=== PATIENT | male | born 1955 | race Caucasian/White ===

== ENCOUNTER 2023-07-28 12:48 | Inpatient (IN) | payer MEDICARE, SELFPAY ==
[2023-07-28] VITALS (8 sets, daily range): BP systolic 125–134; BP diastolic 79–96; PULSE 96–103; RESP 14–20; TEMP 36.2–36.8; O2SAT 9–99; BMI 36.1; BMI 35.5
--- NOTE | 2023-07-28 14:10 | RAD_ITS ---
STUDY: X-RAY CHEST REASON FOR EXAM: Male, 68 years old. Chest pain TECHNIQUE: Single AP portable view of the chest. COMPARISON: None. FINDINGS: EKG electrodes are seen. Small right pleural effusion with right basilar infiltration and/or atelectasis. There is no demonstrated pleural abnormality. Normal size heart. Normal mediastinum and zaynab. Normal visualized pulmonary arteries. Normal visualized aortic arch and descending thoracic aorta. There are diffuse degenerative changes of the visualized thoracic spine. Normal visualized ribs, clavicles, and shoulders. There is no demonstrated abnormality of the visualized soft tissue structures of the upper abdomen. RAD/Chest 1 View (Portable) IMPRESSION: Small right pleural effusion with right basilar infiltration and/or atelectasis. Electronically Signed: Levi Hathaway MD at 14:39 EST ,
--- NOTE | 2023-07-28 14:10 | EKG12_ITS ---
Test Reason : SOB Blood Pressure : / mmHG Vent. Rate : 096 BPM Atrial Rate : 096 BPM P-R Int : 232 ms QRS Dur : 086 ms QT Int : 392 ms P-R-T Axes : 075 260 028 degrees QTc Int : 495 ms Sinus rhythm with 1st degree A-V block Right superior axis deviation Low voltage QRS Inferior infarct , age undetermined Cannot rule out Anteroseptal infarct , age undetermined Abnormal ECG Confirmed by TRESSA TORRES, KARL ([id number]), news video editor LETY JOSE ([id number]) on 07/29/2023 9:08:54 AM Referred By: Confirmed By:KARL BUSTILLOS MD
--- NOTE | 2023-07-28 14:12 | EDS_ITS ---
HPI <Trinidad Bennett RN - Last Filed: 07/28/23 15:40> History of Present Illness Chief Complaint: Shortness of Breath Informant: patient Onset/Context/Timing Onset: - (Summer 2022) Context: Gradual Onset Timing: Waxes and wanes Current Severity: Mild Maximum Severity: Moderate Worsened by: Activity Relieved by: Rest Associated Symptoms Associated Symptoms: Bilateral lower extremity edema Narrative Narrative: Patient presents to the ED after referral from urgent care for bilateral lower extremity edema x 1 month. Patient also reports shortness of breath and productive cough with yellow sputum since having pneumonia last summer worsening with exertion. Patient denies orthopnea. Reports intermittent mid right sharp chest pain associated with coughing. Patient reports following with pulmonology last being seen this past month. Scheduled for a pulmonary stress test and x- ray on 08/07/2023. Reports being a 40-year pack per day smoker who quit 10 years ago. Patient reports possible history of COPD with no confirmed diagnosis that he is aware of. Patient uses Spiriva daily and albuterol inhaler 2-3 times per week. Patient also takes certrazine and Flonase for allergy symptoms patient denies dizziness. Denies nausea, vomiting, or diarrhea. Denies prior blood clots. Reports recently traveled to [place] at the beginning of June. Denies family history of heart disease. Reports father at a young age due to stomach cancer. Prior similar symptoms: Yes Recent Illness/Hospitalization: No PFSH <Trinidad Bennett RN - Last Filed: 07/28/23 15:40> PFSH Home Medications albuterol sulfate 90 mcg/actuation aerosol inhaler 2 inh inhalation Q4H PRN shortness of breath or wheezing 07/28/23 [History Last Taken Unknown] cetirizine 10 mg tablet (Zyrtec) 10 mg PO DAILY allergies 07/28/23 [History Last Taken Unknown] fluticasone propionate 50 mcg/actuation nasal spray,suspension (24 Hour Allergy Relief) 1 spray intranasal DAILY allergies 07/28/23 [History Last Taken Unknown] tiotropium bromide 18 mcg capsule with inhalation device 1 cap inhalation DAILY SOB and wheezing 07/28/23 [History Last Taken Unknown] Allergy/AdvReac Type Severity Reaction Status Date / Time diphenhydramine Allergy Hives Verified 07/28/23 12:49 [From Benadryl] Social History Smoking Status: Never smoker ROS <Trinidad Bennett RN - Last Filed: 07/28/23 15:40> ROS ED Constitutional Constitutional ED: Denies chills, fever(s) or sweats Eyes Eyes: Denies change in vision ENT ENT ED: Denies ear pain, rhinorrhea or sore throat Cardiovascular Cardiovascular: Reports chest pain; Denies orthopnea, palpitations or racing heartbeat Respiratory/Chest Respiratory/Chest: Reports cough, dyspnea, dyspnea on exertion and sputum; Denies orthopnea Gastrointestinal Gastrointestinal: Denies abdominal pain, diarrhea, nausea or vomiting Genitourinary Genitourinary ED: Denies dysuria, hematuria or urinary frequency Musculoskeletal Musculoskeletal: Denies arthralgias or myalgias Neurologic Neurologic: Denies headache(s), paresthesias or weakness EXAM <Trinidad Bennett RN - Last Filed: 07/28/23 15:40> Physical Exam Const Vital Signs: 07/28/23 12:49 07/28/23 13:30 07/28/23 15:02 Temperature 98.2 F Temperature Source Temporal Pulse Rate 103 H Respiratory Rate 20 H Respiratory Effort Normal Respiratory Depth Normal Respiratory Pattern Normal Blood Pressure 134/90 H Blood Pressure Mean 104 Pulse Ox 95 Oxygen Delivery Method Room Air Room Air 07/28/23 15:19 07/28/23 15:20 07/28/23 15:22 Temperature 98.1 F Temperature Source Pulse Rate 97 97 Respiratory Rate 17 17 Respiratory Effort Short of Breath Respiratory Depth Respiratory Pattern Normal Blood Pressure 131/93 H 131/93 H Blood Pressure Mean 105 105 Pulse Ox 94 94 Oxygen Delivery Method Room Air Positive well nourished and well developed General Appearance ED: well developed and NAD HEENT Reports moist mucous membranes Eyes PERRL and EOMs intact bilaterally Neck no lymphadenopathy Chest Wall inspection of chest normal and palpation of chest normal Resp normal respiratory effort and clear to auscultation bilaterally Resp Narrative: Patient able to speak in complete sentences. Auscultation: Negative for rales, rhonchi or wheezes Cardio regular rate, regular rhythm, S1 normal heart sound and S2 normal heart sound GI normal to inspection, nondistended, normoactive bowel sounds and non-tender Palpation: soft Extremity Extremity Narrative: 3+ pitting edema and redness from feet to knees. General Extremety ED: Yes edema General Extremity: edema Neuro oriented x3 Sensorium / Orientation: alert Motor Exam: strength 5/5 throughout Psych mental status grossly normal Skin no rashes or lesions noted <Dr. Adam Marx MD - Last Filed: 07/28/23 15:41> Physical Exam Const Vital Signs: 07/28/23 12:49 07/28/23 13:30 07/28/23 15:02 Temperature 98.2 F Temperature Source Temporal Pulse Rate 103 H Respiratory Rate 20 H Respiratory Effort Normal Respiratory Depth Normal Respiratory Pattern Normal Blood Pressure 134/90 H Blood Pressure Mean 104 Pulse Ox 95 Oxygen Delivery Method Room Air Room Air 07/28/23 15:19 07/28/23 15:20 07/28/23 15:22 Temperature 98.1 F Temperature Source Pulse Rate 97 97 Respiratory Rate 17 17 Respiratory Effort Short of Breath Respiratory Depth Respiratory Pattern Normal Blood Pressure 131/93 H 131/93 H Blood Pressure Mean 105 105 Pulse Ox 94 94 Oxygen Delivery Method Room Air MDM <Trinidad Bennett RN - Last Filed: 07/28/23 15:40> MDM MDM Narrative Medical decision making narrative: Patient placed on vehicle monitor technician. IV line initiated. Labwork obtained to evaluate for leukocytosis, anemia, and electrolyte derangement. EKG obtained to evaluate for cardiac arrhythmia/ischemia. History & Record Review Discussion w/independent historian: Patient Lab Data Labs: Laboratory Results - last 24 hr 07/28/23 13:25 WBC 4.1 L RBC 5.05 Hgb 14.3 Hct 45.1 MCV 89.3 MCH 28.3 MCHC 31.7 L RDW Std Deviation 51.6 H RDW Coeff of Ofelia 15.9 H Plt Count 142 L MPV 11.0 Immature Gran % (Auto) 0.700 Neut % (Auto) 43.3 L Lymph % (Auto) 35.8 [place] % (Auto) 17.2 H Eos % (Auto) 1.5 Baso % (Auto) 1.5 H Absolute Neuts (auto) 1.8 L Absolute Lymphs (auto) 1.48 Nucleated RBC % 0 Sodium 138 Potassium 4.1 Chloride 106 Carbon Dioxide 24.0 Anion Gap 8 BUN 13 Creatinine 1.08 Estim Creat Clear Calc 96.86 Est GFR (MDRD) Af Amer 88 Est GFR (MDRD) Non-Af 72 BUN/Creatinine Ratio 12.0 Glucose 124 H Calcium 8.9 Troponin I High Sens 42 B-Natriuretic Peptide 720.5 H Radiography Diagnostic Testing: Clinical Impression(s) from Imaging Studies Chest X-Ray 07/28/23 14:10 IMPRESSION: Small right pleural effusion with right basilar infiltration and/or atelectasis. Electronically Signed: Levi Hathaway MD at 14:39 EST , Differential Diagnosis Chest pain/SOB: pneumonia, CHF and COPD Management Discussion w/another healthcare provider: Other (Dr. Marx, ED provider) Treatment and Re-Evaluation :: CBC shows white count of 4.1 with neutrophils 43.3 and hemoglobin 14.3. Chemistry is normal with the exception of glucose 124 and a BNP of 720.5. High- sensitivity troponin negative at 42. Chest x-ray shows right pleural effusion. Lab work and imaging suggestive of congestive heart failure. Lab results, imaging, and diagnosis of CHF discussed with patient. Patient verbalizes adequate understanding. Patient to be admitted. <Dr. Adam Marx MD - Last Filed: 07/28/23 15:41> MDM MDM Narrative Medical decision making narrative: Patient placed on vehicle monitor technician. IV line initiated. Labwork obtained to evaluate for leukocytosis, anemia, and electrolyte derangement. EKG obtained to evaluate for cardiac arrhythmia/ischemia. I have personally performed a face to face assessment of the patient and have reviewed the NALDO Note. I performed a substantive portion of the visit including all aspects of the following. My medeiros findings include: 68-year-old male over the last several months has had developed exertional dyspnea. Over the last month he has developed increased swelling and water retention in both lower extremities from the knees down. He has no history of cardiac disease. No history of cardiac surgery. He has not been having chest pain. Exam is [well-appearing 8-year-old male. Vital signs stable afebrile. Pulse ox 95% on room air no hypoxia. H EENT exam unremarkable. Neck nontender no JVD. Lungs diminished in the right base. Heart regular rhythm rate about 95 no murmur. Chest wall nontender. Abdomen soft nontender. Moving all 4 ex tremities. He has 1+ pitting edema from his distal thighs down to his feet. Calves are nontender. No cords. They are equal and symmetrical. Dorsi and plantarflexion intact. Neurologically is awake and alert with no focal motor deficits. Answering questions following commands.] Medical Decision Making [68-year-old male with exertional dyspnea and lower extremity swelling. No cardiac history. History and exam are consistent with CHF. Patient's had worsening symptoms. He is having exertional dyspnea. I think he needs an echocardiogram and further evaluation I will speak to the hospitalist about admission.] Other additions or changes: [None] Lab Data Attestation: I reviewed the patient's lab results. Lab results narrative: CBC shows a white count of 4. H&H 14 and 45. Platelets 142. Electrolytes show a gap of 8. Normal BUN of 13 creatinine of 1. Glucose 124. Troponin normal at 42. BNP elevated at 720. Chest x-ray shows borderline cardiomegaly and a right pleural effusion. EKG sinus rhythm rate of 96 first-degree AV block. Labs: Laboratory Results - last 24 hr 07/28/23 13:25 WBC 4.1 L RBC 5.05 Hgb 14.3 Hct 45.1 MCV 89.3 MCH 28.3 MCHC 31.7 L RDW Std Deviation 51.6 H RDW Coeff of [place]elia 15.9 H Plt Count 142 L MPV 11.0 Immature Gran % (Auto) 0.700 Neut % (Auto) 43.3 L Lymph % (Auto) 35.8 [place] % (Auto) 17.2 H Eos % (Auto) 1.5 Baso % (Auto) 1.5 H Absolute Neuts (auto) 1.8 L Absolute Lymphs (auto) 1.48 Nucleated RBC % 0 Sodium 138 Potassium 4.1 Chloride 106 Carbon Dioxide 24.0 Anion Gap 8 BUN 13 Creatinine 1.08 Estim Creat Clear Calc 96.86 Est GFR (MDRD) Af Amer 88 Est GFR (MDRD) Non-Af 72 BUN/Creatinine Ratio 12.0 Glucose 124 H Calcium 8.9 Troponin I High Sens 42 B-Natriuretic Peptide 720.5 H Radiography Chest X-Ray - ED: 1 View, Read by ED Physician, Read by Radiologist, Cardiomegaly and Right Effusion Diagnostic Testing: Clinical Impression(s) from Imaging Studies Chest X-Ray 07/28/23 14:10 IMPRESSION: Small right pleural effusion with right basilar infiltration and/or atelectasis. Electronically Signed: Levi Hathaway MD at 14:39 EST , Chest x-ray, portable, single view shows right pleural effusion. Cannot rule out atelectasis. Borderline cardiomegaly. Interpreted both by myself and radiologist. Rhythm Strip Rhythm Strip: Sinus Rhythm Rate: 96 Ectopy: None EKG Initial EKG: Attestation: I personally reviewed and interpreted this EKG as follows: Interpretation: Sinus Rhythm and No Acute Injury Pattern Comments: Sinus rhythm rate 96 first-degree AV block. PA interval 232. No signs of NM or ischemia. Discharge Plan Triage Chief Complaint: Shortness of Breath ED Provider: Adam Marx Dx/Rx/DC Orders Clinical Impression: Heart failure, Acute dyspnea, New onset of congestive heart failure, Pleural effusion on right Prescriptions: No Action cetirizine [Zyrtec] 10 mg tablet 10 mg PO DAILY tiotropium bromide 18 mcg capsule, w/inhalation device 1 cap INHALATION DAILY Patient Comments: inhale THE CONTENTS OF ONE CAPSULE IN THE HANDIHALER once daily fluticasone propionate [24 Hour Allergy Relief] 50 mcg/actuation spray,suspension 1 spray intranasal DAILY Rx Instructions: administer into each nostril albuterol sulfate 90 mcg/actuation HFA aerosol inhaler 2 inh inhalation Q4H PRN (Reason: shortness of breath or wheezing) Primary Care Provider: Care Physician,No Primary Referrals: Care Physician,No Primary [Primary Care Provider] - Disposition Disposition: [facility]
[2023-07-28 14:23] LABS: Absolute Lymphocyte Count 1.48 X10^3/uL (0.83-4.51); Absolute Neutrophil Count 1.8 X10^3/uL (2.0-7.7); Basophil# 0.06 X10^3/uL; Basophil% 1.5 % (0-1); Eosinophil# 0.06 X10^3/uL; Eosinophils% 1.5 % (0-5); Hematocrit 45.1 % (40-54); Hemoglobin 14.3 g/dL (13.0-16.5); Lymphocyte # 1.48 X10^3/ul (0.83-4.51); Lymphocyte % 35.8 % (19-41); Mean Corp Hgb Conc 31.7 g/dL (32-36); Mean Corpuscular Hgb 28.3 pg (27.0-32.0); Mean Corpuscular Volume 89.3 fL (80-94); Monocyte# 0.71 X10^3/uL; Monocyte% 17.2 % (0-10); NRBC Flagged by Analyzer 0 % (0-5); Neutrophil # 1.79 X10^3/uL (2.7-7.7); Neutrophil % 43.3 % (47-70); Platelet Count 142 K/mm3 (150-450); RBC Distribution Width CV 15.9 % (11.6-14.6); RBC Distribution Width SD 51.6 fl (35.1-43.9); Red Blood Count 5.05 M/mm3 (4.6-6.2); White Blood Count 4.1 K/mm3 (4.4-11.0)
[2023-07-28 14:42] LABS: BNP,B-Type NATRIURETIC PEPTIDE 720.5 pg/mL (0-100)
[2023-07-28 14:43] LABS: Anion Gap 8 (5-15); BUN 13 mg/dL (7-18); Calcium,Total 8.9 mg/dL (8.5-10.1); Chloride 106 mmol/L (98-107); Creatinine, Serum 1.08 mg/dL (0.70-1.30); EST Glomerular Filtration Rate 72 mL/min (>60); Est Glom Filt Rate - Afr Amer 88 mL/min (>60); Estimated Creatinine Clearance 96.86 ml/min; Glucose 124 mg/dL (74-106); Potassium 4.1 mmol/L (3.5-5.1); Sodium Level 138 mmol/L (136-145); Troponin-I HS 42 pg/mL (3.0-78.0)
[2023-07-28] MEDS: Furosemide 40 MG/4 ML Vial IV (15:45)
--- NOTE | 2023-07-28 16:12 | HP.PCM.HOS_ITS ---
HPI - General General Date of Admission: 07/28/23 Date of Service: 07/28/23 Chief Complaint: SOB on exertion and leg swelling HPI Narrative WILMA ABARCA, is a 68-year-old male with history of possible COPD and seasonal allergies presented to [facility] ED 07/28/2023 for shortness of breath worsening w/ exertion and he additionally has bilateral lower extremity edema but denies orthopnea. Recently established with [facility] pulmonology and is scheduled for a pulmonary stress test and x-ray 08/07/2023. In the ED he was found to have significant pitting edema over his knees and a BNP over 700 with a small right-sided pleural effusion and hospitalist contacted for admission. Patient seen at bedside and reports that he has had increasing shortness of breath for months, has been treated for pneumonia several times and will get slightly better but has not completely improved and is at the point where he cannot even walk up stairs due to his shortness of breath, reports he is gaining weight and fluid and over the past 2 days has had significant worsening of edema in lower extremities to over his knees. Does have some chronic sinus drainage so has slightly productive cough and intermittent tickle in his throat that appears to be chronic. Did see a senior ruby developer to establish care a couple weeks ago and it suspected he may have COPD and was put on Spiriva which helped some but continues to have problems. ROS otherwise negative. PFSH Home Medications albuterol sulfate 90 mcg/actuation aerosol inhaler 2 inh inhalation Q4H PRN shortness of breath or wheezing 07/28/23 [History Last Taken Unknown] cetirizine 10 mg tablet (Zyrtec) 10 mg PO DAILY allergies 07/28/23 [History Last Taken Unknown] fluticasone propionate 50 mcg/actuation nasal spray,suspension (24 Hour Allergy Relief) 1 spray intranasal DAILY allergies 07/28/23 [History Last Taken Unknown] tiotropium bromide 18 mcg capsule with inhalation device 1 cap inhalation DAILY SOB and wheezing 07/28/23 [History Last Taken Unknown] Allergy/AdvReac Type Severity Reaction Status Date / Time diphenhydramine Allergy Hives Verified 07/28/23 12:49 [From Benadryl] Social History Smoking Status: Never smoker ROS ROS Narrative General: Denies fever/chills HENT: Denies headache, denies stuffy nose, denies sore throat EYES: Denies changes in vision Resp: Does have cough occasionally productive, increasing shortness of breath Cardiac: Denies chest pain GI: Denies abdominal pain, does feel he has some increasing abdominal distention, denies changes in bowel, denies nausea/vomiting : Denies changes in urination Extremity: Increasing swelling in lower extremities MSK: Denies weakness Neuro: Denies any numbness/tingling Heme: Denies any bleeding or bruising Skin: Denies rashes Psychiatric: No complaints voiced Vital Signs Vital Signs Vital Signs: 07/28/23 12:49 07/28/23 13:30 07/28/23 15:02 Temperature 98.2 F Temperature Source Temporal Pulse Rate 103 H Respiratory Rate 20 H Respiratory Effort Normal Respiratory Depth Normal Respiratory Pattern Normal Blood Pressure 134/90 H Blood Pressure Mean 104 Pulse Ox 95 Oxygen Delivery Method Room Air Room Air 07/28/23 15:19 07/28/23 15:20 07/28/23 15:22 Temperature 98.1 F Temperature Source Pulse Rate 97 97 Respiratory Rate 17 17 Respiratory Effort Short of Breath Respiratory Depth Respiratory Pattern Normal Blood Pressure 131/93 H 131/93 H Blood Pressure Mean 105 105 Pulse Ox 94 94 Oxygen Delivery Method Room Air 07/28/23 15:45 Temperature Temperature Source Pulse Rate 96 Respiratory Rate 14 Respiratory Effort Respiratory Depth Respiratory Pattern Blood Pressure 130/96 H Blood Pressure Mean 107 Pulse Ox 99 Oxygen Delivery Method Room Air Weight Weight: 131.2 kg Body Mass Index (BMI) 36.1 Physical Exam Narrative General: Alert, oriented, no apparent distress HEENT: Atraumatic, normocephalic Eyes: Anicteric, normal conjunctiva, extraocular movements grossly intact Neck: Supple Respiratory: Somewhat diminished at the bases, normal respiratory effort Cardiovascular: Regular rate and rhythm GI: Soft, nontender, nondistended Extremities: Pitting edema up to her knees Musculoskeletal: Moving all extremities Neuro: No overt focal neurological deficits Skin: No rashes appreciated Psych: Cooperative Results Lab / Micro Data 07/28/23 13:25 07/28/23 13:25 Labs: Laboratory Results - last 24 hr 07/28/23 13:25: WBC 4.1 L, RBC 5.05, Hgb 14.3, Hct 45.1, MCV 89.3, MCH 28.3, MCHC 31.7 L, RDW Std Deviation 51.6 H, RDW Coeff of [place] 15.9 H, Plt Count 142 L, MPV 11.0, Immature Gran % (Auto) 0.700, Neut % (Auto) 43.3 L, Lymph % (Auto) 35.8, [place] % (Auto) 17.2 H, Eos % (Auto) 1.5, Baso % (Auto) 1.5 H, Absolute Neuts (auto) 1.8 L, Absolute Lymphs (auto) 1.48, Nucleated RBC % 0, Sodium 138, Potassium 4.1, Chloride 106, Carbon Dioxide 24.0, Anion Gap 8, BUN 13, Creatinine 1.08, Estim Creat Clear Calc 96.86, Est GFR (MDRD) Af Amer 88, Est GFR (MDRD) Non-Af 72, BUN/Creatinine Ratio 12.0, Glucose 124 H, Calcium 8.9, Troponin I High Sens 42, B-Natriuretic Peptide 720.5 H Rhythm Strip Rhythm Strip: Sinus Rhythm Rate: 96 Ectopy: None Imaging Radiology Impression Chest X-Ray 07/28/23 14:10 IMPRESSION: Small right pleural effusion with right basilar infiltration and/or atelectasis. Electronically Signed: Levi Hathaway MD at 14:39 EST , Assessment & Plan Assessment/Plan (1) Acute dyspnea: (2) Fluid overload: (3) Pleural effusion on right: PLAN: Plan # Increasing edema and dyspnea suspect secondary to fluid overload with possible new onset congestive heart failure -Admit to telemetry -BNP over 700 -CXR with small right pleural effusion with right basilar infiltration or atelectasis -Continue IV lasix -Will obtain echocardiogram -Daily weights, I's and O's -Fluid restriction, heart healthy diet, fluid restriction # History of COPD -DuoNebs, albuterol. -Incentive spirometry #Seasonal allg -cont home meds #DVT ppx: Lovenox subcu Beth Burt MD Charges/Coding Visit Charges Inpatient E&M: 53221 Init Hosp L1
--- NOTE | 2023-07-28 17:13 | ECHOD_ITS ---
Reason For Study: CHF Procedure This was a 2D Doppler, Color Flow transthoracic echocardiogram. Myocardial strain analysis was performed in this exam to aid in the assessment of cardiac function. Exam performed portable in patient room. Left Ventricle Normal LV size. Severe concentric left ventricular hypertrophy. The estimated ejection fraction is 50 %. Stage 3 diastolic dysfunction. No regional wall motion abnormalities noted. Right Ventricle Normal RV size. Normal systolic function. Atria Normal left atrium. Normal right atrium. Mitral Valve Mild diffuse mitral valve thickening. Moderate (2+) eccentric mitral valve insufficiency. Tricuspid Valve Normal tricuspid valve. Mild (1+) tricuspid valve insufficiency. Pulmonary artery systolic pressure is 42 mmHg. Aortic Valve Trisinus/trileaflet aortic valve. Pulmonic Valve Normal pulmonic valve. Great Vessels Normal aortic root. The pulmonary artery is normal size. The inferior vena cava is dilated. and does not collapse. Pericardium/Pleural Small pericardial effusion. There are no echocardiographic indications of cardiac tamponade. MMode/2D Measurements & Calculations LVIDd: 4.3 cm IVSd: 1.8 cm Ao root diam: 3.0 cm LVIDs: 3.3 cm LVPWd: 1.8 cm RVDd: 4.1 cm FS: 23.4 % LAV(MOD-bp): 61.6 ml LVAd ap4: 24.7 cm2 SV(MOD-sp4): 30.1 ml LAV(MOD-bp) Indexed: 24.4 ml/m2 LVLd ap4: 8.2 cm LAV(MOD-sp2): 66.6 ml EDV(MOD-sp4): 61.0 ml LAV(MOD-sp4): 54.8 ml EDV(sp4-el): 63.3 ml LVAs ap4: 16.2 cm2 LVLs ap4: 7.2 cm ESV(MOD-sp4): 30.9 ml ESV(sp4-el): 31.0 ml EF(MOD-sp4): 49.3 % EF(sp4-el): 51.0 % SV(sp4-el): 32.3 ml LA A4 area: 20.2 cm2 LA dimension(2D): 4.2 cm RA A4 area: 20.5 cm2 TAPSE: 1.6 cm Time Measurements MV dec time: 0.11 sec Doppler Measurements & Calculations MV E max randall: 93.8 cm/sec Lat Peak E' Randall: 6.2 cm/sec Med Peak E' Randall: 5.6 cm/sec MV A max randall: 34.8 cm/sec E/E' lat: 15.2 E/E' med: 16.7 MV E/A: 2.7 Ao V2 max: 110.7 cm/sec LV V1 max: 89.7 cm/sec MV dec slope: 832.5 cm/sec2 Ao max P.9 mmHg LV V1 max P.2 mmHg Ao V2 mean: 87.9 cm/sec Ao mean P.2 mmHg Ao V2 VTI: 18.4 cm PA V2 max: 61.5 cm/sec TR max randall: 293.0 cm/sec TR max P.3 mmHg ECHO/Echo Complete Interpretation Summary Normal LV size. Severe concentric left ventricular hypertrophy. Stage 3 diastolic dysfunction. The estimated ejection fraction is 50 %. Moderate (2+) eccentric mitral valve insufficiency. 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 The global longitudinal strain is severely abnormal. The global longitudinal strain = -9% (abnormal). Ordering Physician: Beth Burt Performed By: Mellisa Monaco, SAURABH, RVT
[2023-07-28] MEDS: Ipratropium/Albuterol Sulfate 3 ML AMPUL.NEB INHALATION (19:08)
[2023-07-29 02:31] VITALS: BMI 34.9
[2023-07-29 04:10] VITALS: BP 117/61; PULSE 94; RESP 16; TEMP 36.4; O2SAT 95
[2023-07-29 04:54] LABS: Absolute Lymphocyte Count 1.09 X10^3/uL (0.83-4.51); Absolute Neutrophil Count 1.3 X10^3/uL (2.0-7.7); Basophil# 0.04 X10^3/uL; Basophil% 1.3 % (0-1); Eosinophil# 0.04 X10^3/uL; Eosinophils% 1.3 % (0-5); Hematocrit 40.8 % (40-54); Lymphocyte # 1.09 X10^3/ul (0.83-4.51); Lymphocyte % 34.4 % (19-41); Mean Corp Hgb Conc 31.9 g/dL (32-36); Mean Corpuscular Hgb 28.6 pg (27.0-32.0); Mean Corpuscular Volume 89.9 fL (80-94); Mean Platelet Vol. 10.8 fl (6.2-12.0); Monocyte# 0.59 X10^3/uL; Monocyte% 18.6 % (0-10); NRBC Flagged by Analyzer 0 % (0-5); Neutrophil # 1.31 X10^3/uL (2.7-7.7); Neutrophil % 41.2 % (47-70); Platelet Count 134 K/mm3 (150-450); RBC Distribution Width SD 52.2 fl (35.1-43.9); Red Blood Count 4.54 M/mm3 (4.6-6.2); White Blood Count 3.2 K/mm3 (4.4-11.0)
[2023-07-29 05:28] LABS: ALB/GLOB Ratio 1.1 RATIO (0.9-2.4); AST(SGOT) 25 U/L (15-37); Alanine Aminotransfer ALT/SGPT 20 U/L (16-61); Albumin, Serum 3.7 g/dL (3.2-5.0); Alkaline Phosphatase 53 U/L (45-117); Anion Gap 6 (5-15); BUN 14 mg/dL (7-18); BUN/Creat Ratio 12.4 RATIO (10-20); Calcium,Total 8.9 mg/dL (8.5-10.1); Chloride 107 mmol/L (98-107); Cholesterol 78 mg/dL (200); Creatinine, Serum 1.13 mg/dL (0.70-1.30); EST Glomerular Filtration Rate 69 mL/min (>60); Est Glom Filt Rate - Afr Amer 83 mL/min (>60); Estimated Creatinine Clearance 91.07 ml/min; Globulin 3.4 g/dL (2.2-4.2); Glucose 125 mg/dL (74-106); High Density Lipoprotein 23 mg/dL; Potassium 3.8 mmol/L (3.5-5.1); Protein, Total 7.1 g/dL (6.4-8.2); Sodium Level 138 mmol/L (136-145); Thyroid Stim Hormone (TSH) 9.15 uIU/mL (0.358-3.74); Triglycerides 66 mg/dL; Very Low Density Lipoprotein 13 mg/dL (5-40)
[2023-07-29 07:07] VITALS: PULSE 100; RESP 18
[2023-07-29] MEDS: Ipratropium/Albuterol Sulfate 3 ML AMPUL.NEB INHALATION ×3 (07:07→19:28)
[2023-07-29 07:40] VITALS: BP 112/77; PULSE 98; RESP 17; TEMP 36.5; O2SAT 96
--- NOTE | 2023-07-29 09:54 | PN.HOSP_ITS ---
Reason for Visit Reason for Visit: Diagnoses Fluid overload, unspecified (07/28/23) Pleural effusion, not elsewhere classified (07/28/23) Dyspnea, unspecified (07/28/23) Objective Data Objective Data Vital Signs: Vital Signs Temp Pulse Resp BP Pulse Ox O2 Del Method 97.7 F L 98 17 112/77 96 Room Air 07/29/23 07:40 07/29/23 07:40 07/29/23 07:40 07/29/23 07:40 07/29/23 07:40 07/29/23 07:57 Oxygen Delivery Method Room Air Weight: 279 lb 15.793 oz Body Mass Index (BMI) 34.9 Intake & Output: Intake and Output for Last 24 Hours 07/27/23 07/28/23 07/29/23 23:59 23:59 23:59 Intake Total 240 / 315 225 / 225 Output Total 850 / 1350 1700 / 1700 Balance -610 / -1035 -1475 / -1475 Lab / Micro Data 07/29/23 04:22 07/29/23 04:22 Labs: Laboratory Results - last 24 hr 07/28/23 13:25: WBC 4.1 L, RBC 5.05, Hgb 14.3, Hct 45.1, MCV 89.3, MCH 28.3, MCHC 31.7 L, RDW Std Deviation 51.6 H, RDW Coeff of Ofelia 15.9 H, Plt Count 142 L, MPV 11.0, Immature Gran % (Auto) 0.700, Neut % (Auto) 43.3 L, Lymph % (Auto) 35.8, Emanuel % (Auto) 17.2 H, Eos % (Auto) 1.5, Baso % (Auto) 1.5 H, Absolute Neuts (auto) 1.8 L, Absolute Lymphs (auto) 1.48, Nucleated RBC % 0, Sodium 138, Potassium 4.1, Chloride 106, Carbon Dioxide 24.0, Anion Gap 8, BUN 13, Creatinine 1.08, Estim Creat Clear Calc 96.86, Est GFR (MDRD) Af Amer 88, Est GFR (MDRD) Non-Af 72, BUN/Creatinine Ratio 12.0, Glucose 124 H, Calcium 8.9, Troponin I High Sens 42, B-Natriuretic Peptide 720.5 H 07/29/23 04:22: WBC 3.2 L, RBC 4.54 L, Hgb 13.0, Hct 40.8, MCV 89.9, MCH 28.6, M CHC 31.9 L, RDW Std Deviation 52.2 H, RDW Coeff of [place]elia 16.0 H, Plt Count 134 L, MPV 10.8, Immature Gran % (Auto) 3.200 H, Neut % (Auto) 41.2 L, Lymph % (Auto) 34.4, Emanuel % (Auto) 18.6 H, Eos % (Auto) 1.3, Baso % (Auto) 1.3 H, Absolute Neuts (auto) 1.3 L, Absolute Lymphs (auto) 1.09, Nucleated RBC % 0, Sodium 138, Potassium 3.8, Chloride 107, Carbon Dioxide 25.0, Anion Gap 6, BUN 14, Creatinine 1.13, Estim Creat Clear Calc 91.07, Est GFR (MDRD) Af Amer 83, Est GFR (MDRD) Non-Af 69, BUN/Creatinine Ratio 12.4, Glucose 125 H, Calcium 8.9, Magnesium 2.0, Total Bilirubin 1.80 H, AST 25, ALT 20, Alkaline Phosphatase 53, Total Protein 7.1, Albumin 3.7, Globulin 3.4, Albumin/Globulin Ratio 1.1, Triglycerides 66, Cholesterol 78, LDL Cholesterol 42, VLDL Cholesterol 13, HDL Cholesterol 23 L, TSH 9.15 H Radiography Diagnostic Testing: Radiology Impression Chest X-Ray 07/28/23 14:10 IMPRESSION: Small right pleural effusion with right basilar infiltration and/or atelectasis. Electronically Signed: Levi Hathaway MD at 14:39 EST , Rhythm Strip Rhythm Strip: Sinus Rhythm Rate: 96 Ectopy: None Physical Exam Narrative Seen and examined. Patient admitted with fluid overload. He has bilateral lower extremity edema, abdominal distention with ascites and pleural effusion. Patient denies chest tightness. Patient had subjective feeling on right lung chest as kind of discomfort; could not describe well but not pain Seen and examined. General: Alert, Oriented x3, Cooperative HEENT: Atraumatic, PERRLA, EOMI, Normocephalic Oral: No Gingival or Mucosal Lesions/ Ulcerations Neck: Supple, No JVD, Negative Carotid Bruits Chest wall/Lungs: Right mild to moderate pleural effusion, stony dullness on right sixth ICS on posterior mid scapular line. Air entry diminished on right posterior half. No crepitation/rhonchi Cardiovascular: Regular rate, Regular Rhythm, Normal S1, Normal S2, No M/G/R Abdomen: Bowel Sounds Present, Soft, Non Tender, mild abdominal distention, seem mild ascites on palpation : No dysuria. No renal angle tenderness. No suprapubic tenderness. Extremities: Bilateral 2+ pitting edema, Capillary Refill Less than 3 Seconds Skin: No rashes, No breakdown Musculoskeletal: No Tenderness to Palpation of Joints or Extremities Neurological: Cranial nerves II-XII grossly intact, DTR 2+/4. No acute focal neurological deficit. Psych/Mental Status: Normal Affect, Appropriate. Assessment & Plan Assessment/Plan (1) Acute dyspnea: (2) Fluid overload: (3) Pleural effusion on right: PLAN: Plan Patient came to ED with bilateral lower extremity edema for about 1 month shortness of breath with productive cough, yellow sputum since last pneumonia, summer 2022. Has dyspnea on exertion. 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 # Increasing edema and dyspnea suspect secondary to fluid overload with possible new onset congestive heart failure -Admit to telemetry. Chest x-ray initially reviewed and shows small right pleural effusion with lobar atelectasis. Patient on IV Lasix. -BNP over 700. 2D echo is ordered. Heart failure core measures including intake and output, fluid restriction less than 1500 mL, daily weight monitoring, kidney and electrolytes monitoring. TSH elevated 9.15. Free T4 ordered. Fasting profile within normal limit except HDL low 23. # History of COPD -DuoNebs, albuterol. -Incentive spirometry 40 pack years of smoking quit 15 years ago. #Seasonal allg -cont home meds #DVT ppx: Lovenox subcu Laboratory Results 07/29/23 04:22: WBC 3.2 L, RBC 4.54 L, Hgb 13.0, Hct 40.8, MCV 89.9, MCH 28.6, MCHC 31.9 L, RDW Std Deviation 52.2 H, RDW Coeff of [place]elia 16.0 H, Plt Count 134 L, MPV 10.8, Immature Gran % (Auto) 3.200 H, Neut % (Auto) 41.2 L, Lymph % (Auto) 34.4, Emanuel % (Auto) 18.6 H, Eos % (Auto) 1.3, Baso % (Auto) 1.3 H, Absolute Neuts (auto) 1.3 L, Absolute Lymphs (auto) 1.09, Nucleated RBC % 0, Sodium 138, Potassium 3.8, Chloride 107, Carbon Dioxide 25.0, Anion Gap 6, BUN 14, Creatinine 1.13, Estim Creat Clear Calc 91.07, Est GFR (MDRD) Af Amer 83, Est GFR (MDRD) Non-Af 69, BUN/Creatinine Ratio 12.4, Glucose 125 H, Calcium 8.9, Magnesium 2.0, Total Bilirubin 1.80 H, AST 25, ALT 20, Alkaline Phosphatase 53, Total Protein 7.1, Albumin 3.7, Globulin 3.4, Albumin/Globulin Ratio 1.1, Triglycerides 66, Cholesterol 78, LDL Cholesterol 42, VLDL Cholesterol 13, HDL Cholesterol 23 L, TSH 9.15 H Charges/Coding Visit Charges Inpatient E&M: 64334 Subs Hosp L2
[2023-07-29] MEDS: Enoxaparin 40 MG/0.4 ML Syringe SC (09:59)
[2023-07-29] MEDS: Fluticasone 0.05% 1 SPRAY NASAL.SRY NASAL (09:59)
[2023-07-29] MEDS: Loratadine 10 MG Tablet PO (10:00)
[2023-07-29] MEDS: Furosemide 40 MG/4 ML Vial IV ×2 (10:02→16:51)
--- NOTE | 2023-07-29 14:56 | CASEMGMT ---
HEBERT FOX Assessment Face to Face with patient for initial transition planning/care coordination assessment. HEBERT FOX introduced self and role at [facility], pt voices understanding. Pt is A&Ox4 and is resting comfortably in bed and is calm. Care providers, pharmacy, and demographics verified. Admitting dx: Fluid Overload PCP: No PCP, list provided Specialists: Pulmonary (AIDA REAL) Preferred Pharmacy: [facility] Insurance: MCR A B Prescription Benefit: Pt uses [facility] LNOK: Friend - Alejandro Real Living Arrangements: Pt lives alone on the second floor of an apartment with a flight of steps to enter with HR x2. Pt states that he normally has no issues using these steps but has increased SOB lately. ADLs/IADLs: Ind Transportation: Pt drives. Pt Friend drives. DME: Pt states that he has a cane but rarely needs to use. Shower is equipped with a GB. Denies all other DME needs. HHC/SNF: Denies history or needs. Pt?s goal: Home Plan: 6-click is 23. No therapy ordered or needed. Plan is to diurese the pt and DC home tomorrow with no additional needs at this time. Jerson Wahl RN, CM
[2023-07-29 15:05] VITALS: BP 110/73; PULSE 102; RESP 16; TEMP 36.6; O2SAT 95
[2023-07-29] MEDS: 0.9% Saline Lock 10 ML Syringe IV (16:51)
[2023-07-29 19:28] VITALS: PULSE 100; RESP 18
[2023-07-29 21:00] VITALS: BP 120/79; PULSE 107; RESP 16; TEMP 36.6; O2SAT 96
[2023-07-30 00:50] LABS: Bacteria 0 SEEN /hpf (None Seen); Mucous, Urine 0 SEEN /hpf (<or=2+); Red Blood Cells-Urine 0 SEEN /hpf (0-5); Squamous Epithelial Cells - UA 0 SEEN /hpf (0-5); White Blood Cells 0 SEEN /hpf (0-5)
[2023-07-30 00:55] LABS: Color, Urine Yellow (Yellow); Glucose, Dipstick Normal (Normal); Ketone-Dipstick Negative (Negative); Leukocyte Esterase-Dipstick Negative /ul (Negative); Nitrite-Dipstick Negative (Negative); Occult Blood-Urine Negative /ul (Negative); Protein-Dipstick Negative (Negative); Urine Bilirubin Dipstick Negative (Negative); Urine Clarity Clear (Clear); Urine Urobilinogen Normal (Normal)
[2023-07-30 03:00] VITALS: BP 107/71; PULSE 99; RESP 16; TEMP 36.6; O2SAT 93
[2023-07-30 05:22] VITALS: BMI 33.4
[2023-07-30 06:53] VITALS: PULSE 97; RESP 20
[2023-07-30] MEDS: Ipratropium/Albuterol Sulfate 3 ML AMPUL.NEB INHALATION (06:53)
[2023-07-30 07:03] LABS: Anion Gap 5 (5-15); BUN 20 mg/dL (7-18); BUN/Creat Ratio 16.5 RATIO (10-20); Calcium,Total 9.3 mg/dL (8.5-10.1); Chloride 106 mmol/L (98-107); Creatinine, Serum 1.21 mg/dL (0.70-1.30); EST Glomerular Filtration Rate 64 mL/min (>60); Est Glom Filt Rate - Afr Amer 77 mL/min (>60); Estimated Creatinine Clearance 83.17 ml/min; Glucose 139 mg/dL (74-106); Magnesium 1.9 mg/dL (1.6-2.6); Phosphorus 5.2 mg/dL (2.5-4.9); Potassium 3.4 mmol/L (3.5-5.1); Sodium Level 139 mmol/L (136-145); T4 Free Direct 1.13 ng/dL (0.76-1.46)
--- NOTE | 2023-07-30 07:54 | DCINST_ITS ---
Discharge Instructions Diet Discharge Diet: Low fat / Low cholesterol and 2000 mg Sodium Diet Activity Discharge Activity: Return to Normal Activity Weight Bearing Status: Weight bearing as tolerated Dressing / Incision Call your doctor if you observe: Fever of 101 or Higher, Coldness, Increased Pain, Numbness or Tingling, Change in Color, Inability to urinate, Inability to have a bowel movement, Shortness of breath, Dizziness, Fainting spells, Swelling in the ankles, Chest pain, Prolonged hiccupping, Increased palpitations (irregular heartbeat) and Calf discomfort Follow Up Care When: IN 2 WEEKS Test Results: Test results from this visit will be discussed in further detail at your follow- up appointment, if applicable. Discharge Plan Admission Admit Date/Time: 07/28/23 16:12 Primary Reason for Your Visit: Acute on chronic HFpEF Attending Provider: Jono Rodriguez Primary Care Provider: Care Physician,No Primary Consulting Providers: Beth Burt Instructions Additional Instructions / Restrictions: Advised BMP, magnesium and phosphorus after 1 week and follow with PCP. Patient also has follow-up with laborer carpentry dock in 2 weeks in [place], advised to keep the follow-up. Discharge Orders/Prescriptions Prescriptions: New furosemide [Lasix] 40 mg tablet 40 mg PO BID 30 Days Qty: 60 1RF Rx Instructions: May need to change dosing furosemide 40 mg once daily after 1 week. Follow with PCP spironolactone 25 mg tablet 12.5 mg PO DAILY Qty: 30 2RF metoprolol succinate 25 mg tablet extended release 24 hr 25 mg PO DAILY Qty: 30 3RF Rx Instructions: Hold for heart less than 50 or systolic blood pressure less than 100 mmHg. losartan 25 mg tablet 25 mg PO DAILY Qty: 30 2RF Rx Instructions: Hold for SBP less than 120 mmHg aspirin [Tigre Low Dose Aspirin] 81 mg tablet,delayed release (DR/EC) 81 mg PO DAILY Qty: 30 3RF Continued cetirizine [Zyrtec] 10 mg tablet 10 mg PO DAILY tiotropium bromide 18 mcg capsule, w/inhalation device 1 cap INHALATION DAILY Patient Comments: inhale THE CONTENTS OF ONE CAPSULE IN THE HANDIHALER once daily fluticasone propionate [24 Hour Allergy Relief] 50 mcg/actuation spray,suspension 1 spray intranasal DAILY Rx Instructions: administer into each nostril albuterol sulfate 90 mcg/actuation HFA aerosol inhaler 2 inh inhalation Q4H PRN (Reason: shortness of breath or wheezing) Referrals / Follow Up: Jose Lester MD [Med Staff - Active Staff] - Within 2 Weeks (New diagnosis of heart failure.) Care Physician,No Primary [Primary Care Provider] - Disposition Disposition (needs filled in before D/C Order can be placed): Home, Self Care
--- NOTE | 2023-07-30 08:01 | PCM.DC.SUM ---
Providers Date of Admission: 07/28/23 Date of Discharge: 07/30/23 Primary Care Physician: No Primary Care Phys Reason For Visit: FLUID OVERLOAD Diagnosis Discharge Diagnosis (1) Acute dyspnea: Status: Acute Code(s): R06.00 - Dyspnea, unspecified (2) Fluid overload: Status: Acute Code(s): E87.70 - Fluid overload, unspecified (3) Pleural effusion on right: Status: Acute Code(s): J90 - Pleural effusion, not elsewhere classified Plan Patient came to ED with bilateral lower extremity edema for about 1 month shortness of breath with productive cough, yellow sputum since last pneumonia, summer 2022. Has dyspnea on exertion. 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 # Increasing edema and dyspnea suspect secondary to fluid overload with possible new onset congestive heart failure -Admit to telemetry. Chest x-ray initially reviewed and shows small right pleural effusion with lobar atelectasis. Patient on IV Lasix. -BNP over 700. 2D echo is ordered. Heart failure core measures including intake and output, fluid restriction less than 1500 mL, daily weight monitoring, kidney and electrolytes monitoring. TSH elevated 9.15. Free T4 ordered. Fasting profile within normal limit except HDL low 23. 07/30: 2D echo was reviewed with the patient yesterday and today. EF 50%, stage III diastolic dysfunction, concentric severe LVH with normal LV size. Moderate 2+ eccentric MR. Free T4 1.13. Therefore most likely patient has subclinical hypothyroidism and advised to repeat thyroid function test in 3 months. Patient on furosemide 40 mg twice daily and spironolactone 12.5 mg added as patient has mild hypokalemia, K 3.4. Patient leg swelling shortness of breath and abdominal swelling is improved. Patient is ready for discharge and discharged on above diuretic, metoprolol succinate, low-dose losartan and baby aspirin. Patient will need further follow-up with interior horticulturist Dr. Jose Lester in about 2 to 3 weeks. Patient does not have PCP and advised to make an appointment in 2 to 3 weeks. Discussed about the low-salt diet, nutrition and physical exercise. # History of COPD and exposure to atmospheric thick fog last year 2022 from [place]. Patient used to work in [place] before. It seems patient also had occupational exposure in the past. Detailed history not clear. -DuoNebs, albuterol. Patient is bringing up phlegm and preliminary sputum culture showed normal respiratory mike. Patient does not have fever. I do not suspect pneumonia. -Incentive spirometry 40 pack years of smoking quit 15 years ago. Patient follows piper installer.He also has follow-up with the piper installer in [place]. #Seasonal allg -cont home meds #DVT ppx: Lovenox subcu Laboratory Results 07/29/23 04:22: WBC 3.2 L, RBC 4.54 L, Hgb 13.0, Hct 40.8, MCV 89.9, MCH 28.6, MCHC 31.9 L, RDW Std Deviation 52.2 H, RDW Coeff of Ofelia 16.0 H, Plt Count 134 L, MPV 10.8, Immature Gran % (Auto) 3.200 H, Neut % (Auto) 41.2 L, Lymph % (Auto) 34.4, [place] % (Auto) 18.6 H, Eos % (Auto) 1.3, Baso % (Auto) 1.3 H, Absolute Neuts (auto) 1.3 L, Absolute Lymphs (auto) 1.09, Nucleated RBC % 0, Sodium 138, Potassium 3.8, Chloride 107, Carbon Dioxide 25.0, Anion Gap 6, BUN 14, Creatinine 1.13, Estim Creat Clear Calc 91.07, Est GFR (MDRD) Af Amer 83, Est GFR (MDRD) Non-Af 69, BUN/Creatinine Ratio 12.4, Glucose 125 H, Calcium 8.9, Magnesium 2.0, Total Bilirubin 1.80 H, AST 25, ALT 20, Alkaline Phosphatase 53, Total Protein 7.1, Albumin 3.7, Globulin 3.4, Albumin/Globulin Ratio 1.1, Triglycerides 66, Cholesterol 78, LDL Cholesterol 42, VLDL Cholesterol 13, HDL Cholesterol 23 L, TSH 9.15 H Microbiology Past 72 Hours 07/29/23 10:05 Sputum, Expectorated/Coughed Respiratory Culture - Preliminary Appears to be normal respiratory mike. Further studies to follow. Laboratory Results 07/30/23 06:15: Sodium 139, Potassium 3.4 L, Chloride 106, Carbon Dioxide 28.0, Anion Gap 5, BUN 20 H, Creatinine 1.21, Estim Creat Clear Calc 83.17, Est GFR (MDRD) Af Amer 77, Est GFR (MDRD) Non-Af 64, BUN/Creatinine Ratio 16.5, Glucose 139 H, Calcium 9.3, Phosphorus 5.2 H, Magnesium 1.9, Free T4 1.13 07/30/23 : Urine Color Yellow, Urine Clarity Clear, Urine pH 7.0, Ur Specific [place] 1.010, Urine Protein Negative, Urine Glucose (UA) Normal, Urine Ketones Negative, Urine Occult Blood Negative, Urine Nitrite Negative, Urine Bilirubin Negative, Urine Urobilinogen Normal, Ur Leukocyte Esterase Negative, Urine RBC 0 SEEN, Urine WBC 0 SEEN, Ur Squamous Epith Cells 0 SEEN, Urine Bacteria 0 SEEN, Urine Mucus 0 SEEN Clinical Impression(s) from Imaging Studies Chest X-Ray 07/28/23 14:10 IMPRESSION: Small right pleural effusion with right basilar infiltration and/or atelectasis. Echocardiogram 07/28/23 17:13 Interpretation Summary Normal LV size. Severe concentric left ventricular hypertrophy. Stage 3 diastolic dysfunction. The estimated ejection fraction is 50 %. Moderate (2+) eccentric mitral valve insufficiency. 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 The global longitudinal strain is severely abnormal. The global longitudinal strain = -9% (abnormal). Ordering Physician: Beth Burt Performed By: Mellisa Monaco, SAURABH, RVT Medications at Discharge Home Medications albuterol sulfate 90 mcg/actuation aerosol inhaler 2 inh inhalation Q4H PRN shortness of breath or wheezing 07/28/23 cetirizine 10 mg tablet (Zyrtec) 10 mg PO DAILY allergies 07/28/23 fluticasone propionate 50 mcg/actuation nasal spray,suspension (24 Hour Allergy Relief) 1 spray intranasal DAILY allergies 07/28/23 tiotropium bromide 18 mcg capsule with inhalation device 1 cap inhalation DAILY SOB and wheezing 07/28/23 aspirin 81 mg tablet,delayed release (Tigre Low Dose Aspirin) 81 mg PO DAILY #30 tabs 07/30/23 furosemide 40 mg tablet (Lasix) 40 mg PO BID 30 days #60 tabs 07/30/23 losartan 25 mg tablet 25 mg PO DAILY #30 tabs 07/30/23 metoprolol succinate 25 mg tablet,extended release 24 hr 25 mg PO DAILY #30 tabs 07/30/23 spironolactone 25 mg tablet 12.5 mg (1/2 x 25 mg) PO DAILY #30 tabs 07/30/23 Physical Exam Narrative Seen and examined. Patient has improvement of lower extremity edema abdominal swelling and shortness of breath. He is able to bring up phlegm. No fever. He has bilateral lower extremity edema, abdominal distention with ascites and pleural effusion. Patient denies chest tightness. Seen and examined. General: Alert, Oriented x3, Cooperative HEENT: Atraumatic, PERRLA, EOMI, Normocephalic Oral: No Gingival or Mucosal Lesions/ Ulcerations Neck: Supple, No JVD, Negative Carotid Bruits Chest wall/Lungs: Right mild to moderate pleural effusion, stony dullness on right 8th ICS on posterior mid scapular line. Air entry improved on right posterior half. Improvement in right pleural effusion. No crepitation/rhonchi Cardiovascular: Regular rate, Regular Rhythm, Normal S1, Normal S2, No M/G/R Abdomen: Bowel Sounds Present, Soft, Non Tender, mild abdominal distention, seem mild ascites on palpation : No dysuria. No renal angle tenderness. No suprapubic tenderness. Extremities: Bilateral 1+ pitting edema, Capillary Refill Less than 3 Seconds Skin: No rashes, No breakdown Musculoskeletal: No Tenderness to Palpation of Joints or Extremities Neurological: Cranial nerves II-XII grossly intact, DTR 2+/4. No acute focal neurological deficit. Psych/Mental Status: Normal Affect, Appropriate. Weight / BMI Weight Weight: 267 lb 10.259 oz Body Mass Index (BMI) 33.4 ABG / Lab / Microbiology Data 07/29/23 04:22 07/30/23 06:15 Laboratory: Laboratory Results - last 24 hr 07/30/23 06:15: Sodium 139, Potassium 3.4 L, Chloride 106, Carbon Dioxide 28.0, Anion Gap 5, BUN 20 H, Creatinine 1.21, Estim Creat Clear Calc 83.17, Est GFR (MDRD) Af Amer 77, Est GFR (MDRD) Non-Af 64, BUN/Creatinine Ratio 16.5, Glucose 139 H, Calcium 9.3, Phosphorus 5.2 H, Magnesium 1.9, Free T4 1.13 07/30/23 : Urine Color Yellow, Urine Clarity Clear, Urine pH 7.0, Ur Specific [place] 1.010, Urine Protein Negative, Urine Glucose (UA) Normal, Urine Ketones Negative, Urine Occult Blood Negative, Urine Nitrite Negative, Urine Bilirubin Negative, Urine Urobilinogen Normal, Ur Leukocyte Esterase Negative, Urine RBC 0 SEEN, Urine WBC 0 SEEN, Ur Squamous Epith Cells 0 SEEN, Urine Bacteria 0 SEEN, Urine Mucus 0 SEEN Radiography Diagnostic Testing: Radiology Impression Echocardiogram 07/28/23 17:13 Interpretation Summary Normal LV size. Severe concentric left ventricular hypertrophy. Stage 3 diastolic dysfunction. The estimated ejection fraction is 50 %. Moderate (2+) eccentric mitral valve insufficiency. 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 The global longitudinal strain is severely abnormal. The global longitudinal strain = -9% (abnormal). Ordering Physician: Beth Burt Performed By: Mellisa Monaco, SAURABH, RVT D/C Instructions Discharge Diet: Low fat / Low cholesterol and 2000 mg Sodium Diet Weight Bearing Status: Weight bearing as tolerated Call your doctor if you observe: Fever of 101 or Higher, Coldness, Increased Pain, Numbness or Tingling, Change in Color, Inability to urinate, Inability to have a bowel movement, Shortness of breath, Dizziness, Fainting spells, Swelling in the ankles, Chest pain, Prolonged hiccupping, Increased palpitations (irregular heartbeat) and Calf discomfort When: IN 2 WEEKS Meaningful Use Info Meaningful Use Diagnoses (Choose all that apply): CHF CHF OPAL/ARB ordered at discharge?: Yes Documented LVEF (%): 50 Discharge Plan Admission Admit Date/Time: 07/28/23 16:12 Primary Reason for Your Visit: Acute on chronic HFpEF Attending Provider: Jono Rodriguez Primary Care Provider: Care Physician,No Primary Consulting Providers: Beth Burt Instructions Additional Instructions / Restrictions: Advised BMP, magnesium and phosphorus after 1 week and follow with PCP. Patient also has follow-up with piper installer in 2 weeks in [place], advised to keep the follow-up. Advised to continue incentive spirometry and PEP for 1 more week. Discharge Orders/Prescriptions Prescriptions: New furosemide [Lasix] 40 mg tablet 40 mg PO BID 30 Days Qty: 60 1RF Rx Instructions: May need to change dosing furosemide 40 mg once daily after 1 week. Follow with PCP spironolactone 25 mg tablet 12.5 mg PO DAILY Qty: 30 2RF metoprolol succinate 25 mg tablet extended release 24 hr 25 mg PO DAILY Qty: 30 3RF Rx Instructions: Hold for heart less than 50 or systolic blood pressure less than 100 mmHg. losartan 25 mg tablet 25 mg PO DAILY Qty: 30 2RF Rx Instructions: Hold for SBP less than 120 mmHg aspirin [Tigre Low Dose Aspirin] 81 mg tablet,delayed release (DR/EC) 81 mg PO DAILY Qty: 30 3RF Continued cetirizine [Zyrtec] 10 mg tablet 10 mg PO DAILY tiotropium bromide 18 mcg capsule, w/inhalation device 1 cap INHALATION DAILY Patient Comments: inhale THE CONTENTS OF ONE CAPSULE IN THE HANDIHALER once daily fluticasone propionate [24 Hour Allergy Relief] 50 mcg/actuation spray,suspension 1 spray intranasal DAILY Rx Instructions: administer into each nostril albuterol sulfate 90 mcg/actuation HFA aerosol inhaler 2 inh inhalation Q4H PRN (Reason: shortness of breath or wheezing) Referrals / Follow Up: Jose Lester MD [Med Staff - Active Staff] - Within 2 Weeks (New diagnosis of heart failure.) Care Physician,No Primary [Primary Care Provider] - Disposition Disposition (needs filled in before D/C Order can be placed): Home, Self Care Charges/Coding Visit Charges Inpatient E&M: 16901 Disch Hosp >30min
[2023-07-30 09:30] VITALS: BP 121/75; PULSE 108; RESP 18; TEMP 36.4; O2SAT 93
[2023-07-30] MEDS: Loratadine 10 MG Tablet PO (09:33)
[2023-07-30] MEDS: Furosemide 40 MG/4 ML Vial IV (09:34)
[2023-07-30] MEDS: 0.9% Saline Lock 10 ML Syringe IV (09:34)
[2023-07-30] MEDS: Fluticasone 0.05% 1 SPRAY NASAL.SRY NASAL (09:34)
[2023-07-30] MEDS: Enoxaparin 40 MG/0.4 ML Syringe SC (09:34)
[2023-07-30 09:45] VITALS: O2SAT 91; O2SAT 94
--- NOTE | 2023-07-30 10:00 | CASEMGMT ---
Patient has order for discharge. RN CM in to discuss needs at discharge. Patient denies needs or help at discharge. Patient had no further questions or concerns.
[2023-07-30] MEDS: Spironolactone 25 MG Tablet PO (10:40)
--- NOTE | 2023-07-30 10:40 | PHA.DC.MC.R ---
Pharmacy [facility] has performed discharge medication reconciliation and counseling for this patient. The patient's discharge medication list was reviewed for discrepancies and discrepancies were resolved. The patient was counseled on the following discharge medications and changes in medications for homegoing were reviewed. 1. ASPIRIN 2. LASIX 3. LOSARTAN 4. TOPROL XL 5. ALDACTONE The Reason for Use, instructions for use, and potential side effects were reviewed for all new medications. The patient's questions regarding all of their medications were answered. The patient was able to verbally demonstrate an understanding of their discharge medications. The patient was provided counselling by Cesar Lindo PharmD Candidate
== END 2023-07-30 13:40 | disposition home or self-care (01) | DRG 293 ==
LOC: ED 15:41 → PCU 16:22
PROVIDERS: Admitting Provider Internal Medicine; Emergency Provider Emergency Medicine; Visit Provider Internal Medicine
DX: I50.31 Acute diastolic (congestive) heart failure (principal); E03.8 Other specified hypothyroidism; J44.9 Chronic obstructive pulmonary disease, unspecified; E87.6 Hypokalemia; J30.2 Other seasonal allergic rhinitis; Z79.899 Other long term (current) drug therapy; Z87.891 Personal history of nicotine dependence
CPT/HCPCS: 36415; 71045; 80048; 80053; 80061; 81001; 83735; 83880; 84100; 84439; 84443; 84484; 85025; 87070; 87205; 93005; 93306; 94640; 94668; 99285; A4216; J1940

== ENCOUNTER → 2023-08-14 | Outpatient (CLI) | payer MEDICARE, SELFPAY ==
[2023-08-14 12:08] LABS: Absolute Lymphocyte Count 1.23 X10^3/uL (0.83-4.51); Absolute Neutrophil Count 2.1 X10^3/uL (2.0-7.7); Basophil# 0.05 X10^3/uL; Basophil% 1.2 % (0-1); Eosinophil# 0.06 X10^3/uL; Eosinophils% 1.4 % (0-5); Hematocrit 43.3 % (40-54); Hemoglobin 13.6 g/dL (13.0-16.5); Lymphocyte # 1.23 X10^3/ul (0.83-4.51); Lymphocyte % 29.1 % (19-41); Mean Corp Hgb Conc 31.4 g/dL (32-36); Mean Corpuscular Hgb 28.2 pg (27.0-32.0); Mean Corpuscular Volume 89.6 fL (80-94); Mean Platelet Vol. 11.6 fl (6.2-12.0); Monocyte# 0.69 X10^3/uL; Monocyte% 16.3 % (0-10); NRBC Flagged by Analyzer 0 % (0-5); Neutrophil # 2.12 X10^3/uL (2.7-7.7); Neutrophil % 50.1 % (47-70); Platelet Count 129 K/mm3 (150-450); RBC Distribution Width CV 15.1 % (11.6-14.6); RBC Distribution Width SD 49.7 fl (35.1-43.9); Red Blood Count 4.83 M/mm3 (4.6-6.2); White Blood Count 4.2 K/mm3 (4.4-11.0)
[2023-08-14 12:42] LABS: AST(SGOT) 25 U/L (15-37); Alanine Aminotransfer ALT/SGPT 23 U/L (16-61); Alkaline Phosphatase 62 U/L (45-117); Anion Gap 10 (5-15); BUN 30 mg/dL (7-18); BUN/Creat Ratio 21.9 RATIO (10-20); Calcium,Total 9.3 mg/dL (8.5-10.1); Chloride 99 mmol/L (98-107); Cholesterol 75 mg/dL (200); Creatinine, Serum 1.37 mg/dL (0.70-1.30); EST Glomerular Filtration Rate 55 mL/min (>60); Est Glom Filt Rate - Afr Amer 67 mL/min (>60); Glucose 181 mg/dL (74-106); High Density Lipoprotein 23 mg/dL; PSA,Total - Annual Screen 2.78 ng/mL (0.00-4.00); Potassium 3.9 mmol/L (3.5-5.1); Sodium Level 136 mmol/L (136-145); Thyroid Stim Hormone (TSH) 9.81 uIU/mL (0.358-3.74); Triglycerides 63 mg/dL; Very Low Density Lipoprotein 13 mg/dL (5-40)
== END | disposition home or self-care (01) ==
LOC: MFPLAB 09:47
PROVIDERS: Visit Provider Family Medicine
DX: Z12.5 Encounter for screening for malignant neoplasm of prostate (principal); I50.9 Heart failure, unspecified
CPT/HCPCS: 36415; 80053; 80061; 84153; 84443; 85025; G0103

== ENCOUNTER → 2023-09-01 | Outpatient (CLI) | payer MEDICARE, SELFPAY ==
[2023-09-03 12:09] LABS: Immunoglobulin A 242 mg/dL (61-437); Immunoglobulin G 1358 mg/dL (603-1613); Immunoglobulin M 139 mg/dL (20-172)
== END | disposition home or self-care (01) ==
LOC: LAB 12:13
PROVIDERS: PCP Family Medicine; Referring Provider Internal Medicine Cardiovascular Disease; Visit Provider Internal Medicine Cardiovascular Disease
DX: I50.9 Heart failure, unspecified (principal)
CPT/HCPCS: 36415; 82784; 86334; 86335

== ENCOUNTER → 2023-09-30 | Outpatient (CLI) | payer MEDICARE, MEDICAID, SELFPAY ==
--- NOTE | 2023-09-30 09:08 | NM_ITS ---
CLINICAL: 68-year-old male with history of suspected cardiac amyloidosis. 99m Tc PYROPHOSPHATE CARDIAC AMYLOID EXAMINATION COMPARISON: None available FINDINGS: Following the intravenous administration of 20.8 mCi of 99m Tc pyrophosphate, anterior acquisitions of the thorax reveal: 1. Planar projections demonstrate increased pharmaceutical concentration within the context of the left ventricular myocardium for a Perugini score of 2. The heart to contralateral ratio was calculated to be 1.56 (normal < 1.5:1). NM/PYP SPECT for Cardiac Amyloid IMPRESSION: 1. 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 (Wendie et al, Diagnostics 11: 996, 2020). Electronically Signed: Mino Lancaster DO at 9:16 EDT ,
== END | disposition home or self-care (01) ==
LOC: NM 09:02
PROVIDERS: PCP Family Medicine; Referring Provider Internal Medicine Cardiovascular Disease; Visit Provider Internal Medicine Cardiovascular Disease
DX: I50.9 Heart failure, unspecified (principal)
CPT/HCPCS: 78803; A9538

== ENCOUNTER → 2023-10-02 | Outpatient (CLI) | payer MEDICARE, MEDICAID, SELFPAY ==
[2023-10-02 13:44] LABS: Anion Gap 5 (5-15); BUN 24 mg/dL (7-18); BUN/Creat Ratio 18.9 RATIO (10-20); Calcium,Total 9.2 mg/dL (8.5-10.1); Chloride 102 mmol/L (98-107); Creatinine, Serum 1.27 mg/dL (0.70-1.30); EST Glomerular Filtration Rate 60 mL/min (>60); Est Glom Filt Rate - Afr Amer 73 mL/min (>60); Glucose 98 mg/dL (74-106); Potassium 3.9 mmol/L (3.5-5.1); Sodium Level 135 mmol/L (136-145)
[2023-10-05 15:07] LABS: Free Kappa Light Chains 31.9 mg/L (3.3-19.4); Free Lambda Light Chains 415.2 mg/L (5.7-26.3)
== END | disposition home or self-care (01) ==
LOC: LAB 11:18
PROVIDERS: PCP Family Medicine; Referring Provider Internal Medicine Cardiovascular Disease; Visit Provider Internal Medicine Cardiovascular Disease
DX: I50.9 Heart failure, unspecified (principal)
CPT/HCPCS: 36415; 80048; 83883

== ENCOUNTER 2023-10-07 13:18 | Outpatient (CLI) | payer MEDICARE, MEDICAID, SELFPAY ==
[2023-10-07 13:25] VITALS: BP 108/72; PULSE 82; RESP 16; TEMP 35.9; O2SAT 96; BMI 34.9
[2023-10-07] MEDS: 0.9% NaCl Peripheral Flush Adult/Peds IV ×2 (13:40→13:48)
[2023-10-07] MEDS: Furosemide 40 MG/4 ML Vial IV (13:40)
== END 2023-10-07 13:19 | disposition home or self-care (01) ==
LOC: MEDOUTP 13:19
PROVIDERS: PCP Family Medicine; Referring Provider Internal Medicine Cardiovascular Disease; Visit Provider Internal Medicine Cardiovascular Disease
DX: I50.33 Acute on chronic diastolic (congestive) heart failure (principal); R60.0 Localized edema
CPT/HCPCS: 96374; A4216; J1940

== ENCOUNTER 2023-10-08 12:49 | Outpatient (CLI) | payer MEDICARE, MEDICAID, SELFPAY ==
[2023-10-08 13:10] VITALS: BP 94/67; PULSE 82; RESP 16; TEMP 36.3; O2SAT 96
[2023-10-08] MEDS: 0.9% NaCl Peripheral Flush Adult/Peds IV ×2 (13:25→13:33)
[2023-10-08] MEDS: Furosemide 40 MG/4 ML Vial IV (13:27)
== END 2023-10-08 12:50 | disposition home or self-care (01) ==
LOC: MEDOUTP 12:50
PROVIDERS: PCP Family Medicine; Referring Provider Internal Medicine Cardiovascular Disease; Visit Provider Internal Medicine Cardiovascular Disease
DX: I50.33 Acute on chronic diastolic (congestive) heart failure (principal); R60.0 Localized edema; I35.0 Nonrheumatic aortic (valve) stenosis
CPT/HCPCS: 96374; A4216; J1940

== ENCOUNTER 2023-10-09 13:20 | Outpatient (CLI) | payer MEDICARE, MEDICAID, SELFPAY ==
[2023-10-09] MEDS: 0.9% NaCl Peripheral Flush Adult/Peds IV ×3 (13:33→13:52)
[2023-10-09 13:34] VITALS: BP 102/67; PULSE 93; RESP 16; TEMP 36.6; O2SAT 93; BMI 34.6
[2023-10-09] MEDS: Furosemide 40 MG/4 ML Vial IV (13:40)
[2023-10-09 14:05] VITALS: BP 96/64; PULSE 90; RESP 16; TEMP 36.3; O2SAT 93
[2023-10-09 15:07] LABS: Anion Gap 7 (5-15); BUN 26 mg/dL (7-18); Calcium,Total 8.9 mg/dL (8.5-10.1); Chloride 103 mmol/L (98-107); Creatinine, Serum 1.37 mg/dL (0.70-1.30); EST Glomerular Filtration Rate 55 mL/min (>60); Est Glom Filt Rate - Afr Amer 67 mL/min (>60); Estimated Creatinine Clearance 74.72 ml/min; Glucose 193 mg/dL (74-106); Potassium 3.8 mmol/L (3.5-5.1); Sodium Level 137 mmol/L (136-145)
== END 2023-10-09 13:21 | disposition home or self-care (01) ==
LOC: MEDOUTP 13:20
PROVIDERS: PCP Family Medicine; Referring Provider Internal Medicine Cardiovascular Disease; Visit Provider Internal Medicine Cardiovascular Disease
DX: I50.33 Acute on chronic diastolic (congestive) heart failure (principal)
CPT/HCPCS: 96374; 80048; A4216; J1940

== ENCOUNTER → 2023-10-15 | Outpatient (CLI) | payer MEDICARE, MEDICAID, SELFPAY ==
--- NOTE | 2023-10-15 09:41 | ART_ITS ---
Reason For Study: Claudication Procedure A bilateral lower extremity continuous wave Doppler with analog waveform analysis and ankle brachial indexes. Left Segmental Pressures Left brachial= 107mmHg. Left posterior tibial artery = 126mmHg. Left dorsalis pedis artery = 127mmHg. Left digit = 72 mmHg. The left dorsalis pedis waveforms are triphasic. The left posterior tibial artery waveforms are triphasic. Right Segmental Pressures Right brachial= 110mmHg. Right posterior tibial artery = 125mmHg. Right dorsalis pedis artery = 120mmHg. Right digit = 101 mmHg. The right dorsalis pedis waveforms are triphasic. The right posterior tibial artery waveforms are triphasic. Indices The right ankle brachial index by the dorsalis pedis is 1.09. The right ankle brachial index by the posterior tibial artery is 1.14. The right digital-brachial index is 0.92. The left ankle brachial index by the dorsalis pedis is 1.15. The left ankle brachial index by the posterior tibial artery is 1.15. The left digital-brachial index is 0.65. VL/Ankle Brachial Index Interpretation Summary Right NILES 1.14, normal. TBI and Doppler/PVR waveforms of the right ankle normal at rest. Left NILES 1.15, normal. Doppler/PVR waveforms of the left ankle normal at rest. TBI and digit waveform diminished, pedal/digit disease vs spasm Ordering Physician: Jose Lester Referring Physician: Rizwana Lam Performed By: Wendy Heath RVT
[2023-10-15 11:39] LABS: Anion Gap 4 (5-15); BUN 25 mg/dL (7-18); Calcium,Total 9.2 mg/dL (8.5-10.1); Chloride 105 mmol/L (98-107); Creatinine, Serum 1.39 mg/dL (0.70-1.30); EST Glomerular Filtration Rate 54 mL/min (>60); Est Glom Filt Rate - Afr Amer 65 mL/min (>60); Glucose 163 mg/dL (74-106); Potassium 4.4 mmol/L (3.5-5.1); Sodium Level 137 mmol/L (136-145)
== END | disposition home or self-care (01) ==
PROVIDERS: PCP Family Medicine; Referring Provider Internal Medicine Cardiovascular Disease; Visit Provider Internal Medicine Cardiovascular Disease
DX: I50.33 Acute on chronic diastolic (congestive) heart failure (principal); I73.9 Peripheral vascular disease, unspecified
CPT/HCPCS: 36415; 80048; 93922

== ENCOUNTER → 2023-10-22 | Outpatient (CLI) | payer MEDICARE, MEDICAID, SELFPAY ==
[2023-10-22 14:29] LABS: Troponin-I HS 50 pg/mL (3.0-78.0)
[2023-10-22 18:19] LABS: BNP,B-Type NATRIURETIC PEPTIDE 1057.1 pg/mL (0-100)
== END | disposition home or self-care (01) ==
LOC: LAB 13:29
PROVIDERS: PCP Family Medicine; Referring Provider Internal Medicine Cardiovascular Disease
DX: I73.9 Peripheral vascular disease, unspecified (principal); I50.33 Acute on chronic diastolic (congestive) heart failure; E66.9 Obesity, unspecified
CPT/HCPCS: 36415; 83880; 84484

== ENCOUNTER → 2023-11-03 | Outpatient (CLI) | payer MEDICARE, MEDICAID, SELFPAY ==
[2023-11-03 20:43] LABS: 24HR. UA Prot. Total Volume 1800 mL; 24HR. Urine Creatinine 1.46 g/24 HR (0.90-2.10); Urine Protein (24 Hour) 22.5 mg/dL (<11.9)
== END | disposition home or self-care (01) ==
PROVIDERS: PCP Family Medicine
DX: E85.4 Organ-limited amyloidosis (principal); I43 Cardiomyopathy in diseases classified elsewhere
CPT/HCPCS: 81050; 82570; 84156

== ENCOUNTER → 2023-12-04 | Outpatient (CLI) | payer MEDICARE, MEDICAID, SELFPAY ==
--- NOTE | 2023-12-04 08:56 | AAAS_ITS ---
Reason For Study: AAA Screening Aorta Measurements Aorta Doppler Measurements Proximal aorta measures2.27 x 2.12cm. in cross- Peak systolic flow velocities within the proximal sectional axis. aorta measure 70.2 cm/sec. Proximal aorta measures2.15cm. in longitudinal axis. Unable to visualize mid-dist AO due to excessive fluid/gas accumulation within abdomen. Left Iliac Artery Unable to visualize Lt JAE due to excessive fluid/gas accumulation within abdomen. Right Iliac Artery Unable to visualize Rt JAE due to excessive fluid/gas accumulation within abdomen. Procedure Aorta IVC Iliac vasculature or bypass grafts [id number]. Limited views obtained. Incomplete exam due to excessive fluid/gas accumulation within abdomen. Exam performed in department. VL/AAA Screening Interpretation Summary The dimensions of the proximal intra-abdominal aorta appear normal, without jean carlos dence of aneurysmal dilatation. The proximal intra-abdominal aorta appears patent, demonstrating no rmal, pulsatile arterial flow and normal peak systolic velocity. The mid- and distal intra-abdo jak aorta, and the iliac arteries, could not be visualized due to the presence of intra-abdominal intestinal gas. Ordering Physician: Rizwana Lam Performed By: Harish Crump RVT
== END | disposition home or self-care (01) ==
LOC: CVS 08:54
PROVIDERS: PCP Family Medicine; Visit Provider Family Medicine
DX: Z13.6 Encounter for screening for cardiovascular disorders (principal)
CPT/HCPCS: 76706

== ENCOUNTER → 2023-12-08 | Outpatient (CLI) | payer MEDICARE, MEDICAID, SELFPAY ==
[2023-12-08 13:58] LABS: Anion Gap 9 (5-15); BUN 35 mg/dL (7-18); BUN/Creat Ratio 22.3 RATIO (10-20); Calcium,Total 9.2 mg/dL (8.5-10.1); Chloride 94 mmol/L (98-107); Creatinine, Serum 1.57 mg/dL (0.70-1.30); EST Glomerular Filtration Rate 47 mL/min (>60); Est Glom Filt Rate - Afr Amer 57 mL/min (>60); Glucose 125 mg/dL (74-106); Potassium 3.7 mmol/L (3.5-5.1); Sodium Level 135 mmol/L (136-145)
== END | disposition home or self-care (01) ==
PROVIDERS: PCP Family Medicine; Referring Provider Internal Medicine Cardiovascular Disease; Visit Provider Internal Medicine Cardiovascular Disease
DX: I50.33 Acute on chronic diastolic (congestive) heart failure (principal)
CPT/HCPCS: 36415; 80048; 83880

== ENCOUNTER 2024-01-05 11:08 | Inpatient (IN) | payer MEDICARE, MEDICAID, SELFPAY ==
[2024-01-05] VITALS (11 sets, daily range): BP systolic 76–102; BP diastolic 64–81; PULSE 74–85; RESP 14–19; TEMP 36.2–36.8; O2SAT 88–97; BMI 36.9; BMI 35.9
--- NOTE | 2024-01-05 11:13 | EDS_ITS ---
HPI History of Present Illness Chief Complaint: Shortness of Breath [facility] Medical History (Updated 01/05/24 @ 15:52 by Lesa Waddell) Asthma Congestive heart failure (CHF) Rheumatoid arthritis Former smoker COPD (chronic obstructive pulmonary disease) Migraines Heart failure Home Medications ?Medication ?Instructions ?Recorded ?Last Taken ?Type albuterol sulfate 90 mcg/actuation 2 inh inhalation Q4H PRN shortness 07/28/23 Unknown History aerosol inhaler of breath or wheezing cetirizine 10 mg tablet (Zyrtec) 10 mg PO DAILY allergies 07/28/23 Unknown History fluticasone propionate 50 1 spray intranasal DAILY allergies 07/28/23 01/05/24 History mcg/actuation nasal spray,suspension (24 Hour Allergy Relief) aspirin 81 mg tablet,delayed 81 mg PO DAILY #30 tabs 07/30/23 01/04/24 Rx release (Tigre Low Dose Aspirin) levothyroxine 25 mcg tablet 25 mcg PO QDAY 09/01/23 01/05/24 History spironolactone 25 mg tablet 25 mg PO DAILY #30 tabs 10/02/23 01/04/24 Rx dapagliflozin propanediol 10 mg 10 mg PO QDAY 12/08/23 01/04/24 History tablet torsemide 20 mg tablet 40 mg PO BID 12/08/23 01/05/24 History fluticasone furoate 100 1 ea inhalation DAILY 01/05/24 01/05/24 History mcg-vilanterol 25 mcg/dose inhalation powder mupirocin 2 % topical ointment 0.25 ea topical TID 01/05/24 01/05/24 History Allergy/AdvReac Type Severity Reaction Status Date / Time soy Allergy Severe Upset Verified 12/08/23 11:21 Stomach amoxicillin (From Augmentin) Allergy Hives Verified 12/08/23 11:23 clavulanic acid (From Allergy Hives Verified 12/08/23 11:23 Augmentin) diphenhydramine (From Allergy Hives Verified 12/08/23 11:21 Benadryl) ibuprofen (From Advil) AdvReac joints Verified 01/05/24 15:55 swell Surgical History History of appendectomy Social History Smoking Status: Former smoker how long ago did patient quit smokin years alcohol intake: never substance use type: does not use caffeine: Yes Type: coffee Number of servings: 2 EXAM Physical Exam Const Vital Signs: 01/05/24 11:09 01/05/24 11:22 01/05/24 11:35 Temperature 97.2 F L Temperature Source Temporal Pulse Rate 79 Respiratory Rate 19 H Respiratory Effort Normal Non-Labored Normal Respiratory Depth Normal Respiratory Pattern Normal Blood Pressure 89/67 L Blood Pressure Mean 74 Pulse Ox 96 Oxygen Delivery Method Room Air Room Air 01/05/24 12:45 01/05/24 13:09 01/05/24 13:22 Temperature 98.2 F Temperature Source Pulse Rate 81 82 Respiratory Rate 18 14 Respiratory Effort Respiratory Depth Respiratory Pattern Blood Pressure 76/67 L 102/81 H 98/74 Blood Pressure Mean 70 88 82 Pulse Ox 88 93 94 Oxygen Delivery Method Room Air Room Air 01/05/24 13:38 Temperature Temperature Source Pulse Rate 81 Respiratory Rate 17 Respiratory Effort Respiratory Depth Respiratory Pattern Blood Pressure 102/76 Blood Pressure Mean 84 Pulse Ox 94 Oxygen Delivery Method Room Air MDM MDM MDM Narrative Medical decision making narrative: HISTORY OF PRESENT ILLNESS: 68-year-old male presents with bilateral lower extremity edema, shortness of breath and weight gain. Notes symptoms have increased over last couple weeks. Denies any chest pain. The patient denies recent surgery in the last 4 weeks or immobilization in the last 3 days, denies previous diagnosis of DVT or PE, hemoptysis, unilateral leg swelling or malignancy with treatment the last 6 months or palliative. No estrogen use noted. REVIEW OF SYSTEMS: Pertinent positives: Shortness of breath, leg swelling Pertinent negatives: Chest pain, bleeding diathesis PHYSICAL EXAM: Nursing triage notes reviewed, Vital signs reviewed Constitutional: please see mdm HENT: MMM Eyes: Pupils equal round and reactive to light, Extraocular muscles intact Neck: No stridor, no JVD, full neck ROM Lungs: Clear to auscultation, No wheezing or rales. No increased work of breathing, no conversational dyspnea, no accessory muscle use, no nasal flaring. No respiratory distress noted Heart: Regular rate and rhythm, No murmurs, No rubs and No gallops, 2+ distal pulses (radial, femoral, posterior tibial) in all extremities Abdomen: Edematous, distended, soft, there is no tenderness, rigidity, rebound or guarding, no obvious peritoneal signs, no palpable pulsatile abdominal masses, no auscultated abdominal bruit : No CVAT Extremities: Severe 3+ pitting edema noted bilateral lower extremities Neuro: No focal neurological deficits, cranial nerves II through XII intact, 5/5 strength in all extremities. Intact sensation to light touch in all extremities, 2+ reflexes bilateral patella tendons. Normal gait. No ataxia. Skin: No rash or lesions noted MEDICAL DECISION MAKING: Chief Complaint: Shortness of breath External records reviewed: Prior echocardiogram reviewed: Echocardiogram 2023 showed ejection fraction of 50% with stage III diastolic dysfunction Factors affecting care: CHF, COPD, hypothyroidism Social determinants of health: none History obtained from others: Patient's friend Consults: Cardiology, internal medicine MDM Narrative: Patient was initially afebrile, nontoxic-appearing had soft blood pressures initially but saturating at 96% on room air. Exam with signs of volume overload including lower extremity edema and diffuse anasarca I considered the following differential diagnosis: CHF exacerbation, anemia, electrolyte disturbance, arrhythmia, pneumonia, PE, COPD exacerbation I obtained a broad lab and imaging workup to further elucidate the etiology the patient complaint. ALL IMAGES (IF OBTAINED) HAVE BEEN PERSONALLY REVIEWED AND INTERPRETED BY MYSELF. EKG with normal sinus rhythm, extreme right axis deviation, no STEMI, no significant change from prior EKG noted from September 2023 in terms of low voltage and right axis deviation Troponin elevated consistent with myocardial ischemia but to be due to demand ischemia from likely heart failure and hypotension rather than acute coronary artery occlusion given lack of chest pain and EKG changes suggestive of STEMI Chest x-ray read reviewed myself shows evidence of right-sided pleural effusion, await radiologist read CBC without leukocytosis, no anemia or thrombocytopenia BMP with hyponatremia, noted MOOKIE on CKD, no evidence of metabolic acidosis or endorgan hypoperfusion with normal bicarb and anion gap BNP elevated consistent with volume overload The synthesis of the patient's history, physical exam, labs images suggest likely heart failure producing lower extremity edema, orthopnea, dyspnea on exertion as well elevated troponin value. There is no sign of acute STEMI. Did discuss case with the early learning teacher (Dr. Kaiser) who recommended 40 mg IV Lasix admission for further diuresis. The patient and/or family, caregivers express understanding. The patient and/or family, caregivers agrees with the plan. Shared decision making: I will have a discussion with the patient and or visitors regarding risk/benefits of further testing or admission. They will be made aware of of the risk/benefits inherent in this decision they will be given the opportunity to voice understanding. Total critical care time today provided was at least 0 minutes. This excludes separately billable procedures. Critical care time (if documented) is secondary to the patient having high probability of clinically significant/life threatening deterioration in the patient's condition which required my urgent intervention. Impression: 1. Dyspnea 2. Lower extremity edema 3. CHF exacerbation 4. NSTEMI Dispo: Admit to PCU discussed with hospitalist (Dr. Burt) This note was generated with [employer] dictation software. It may contain incorrect words, spelling, and punctuation that were not noted in review of the chart prior to signing. Lab Data Labs: Laboratory Results - last 24 hr 01/05/24 01/05/24 11:30 13:45 WBC 5.0 RBC 4.66 Hgb 14.7 Hct 45.0 MCV 96.6 H MCH 31.5 MCHC 32.7 RDW Std Deviation 64.6 H RDW Coeff of Ofelia 18.6 H Plt Count 129 L MPV 10.6 Immature Gran % (Auto) 1.600 H Neut % (Auto) 63.2 Lymph % (Auto) 17.7 L Edwards % (Auto) 15.7 H Eos % (Auto) 0.4 Baso % (Auto) 1.4 H Absolute Neuts (auto) 3.2 Absolute Lymphs (auto) 0.89 Nucleated RBC % 0 Differential Comment SCANNED Platelet Estimate SLT DEC Sodium 133 L Potassium 4.0 Chloride 95 L Carbon Dioxide 31.0 Anion Gap 7 BUN 48 H Creatinine 1.94 H Estim Creat Clear Calc 54.51 Est GFR (MDRD) Af Amer 45 L Est GFR (MDRD) Non-Af 37 L BUN/Creatinine Ratio 24.7 H Glucose 126 H Calcium 9.4 Total Bilirubin 3.00 H AST 31 ALT 25 Alkaline Phosphatase 60 Troponin I High Sens 134 H* 126 H* B-Natriuretic Peptide 1766.5 H Total Protein 7.9 Albumin 3.8 Globulin 4.1 Albumin/Globulin Ratio 0.9 Radiography Diagnostic Testing: Clinical Impression(s) from Imaging Studies Chest X-Ray 01/05/24 11:40 IMPRESSION: Small to moderate right pleural effusion with mild loss in the right lower lobe. Mild vascular congestion. Electronically Signed: Levi Hathaway MD at 12:25 EDT , Discharge Plan Disposition Disposition: Acute Care Hospital [facility] Discharge Date/Time: 01/05/24 15:12
--- NOTE | 2024-01-05 11:27 | EKG12_ITS ---
Test Reason : SOB Blood Pressure : / mmHG Vent. Rate : 081 BPM Atrial Rate : 081 BPM P-R Int : 112 ms QRS Dur : 100 ms QT Int : 372 ms P-R-T Axes : 000 251 -42 degrees QTc Int : 432 ms Normal sinus rhythm Low voltage QRS Septal infarct (cited on or before 28-JUL-2023) Possible Lateral infarct (cited on or before 28-JUL-2023) Inferior infarct (cited on or before 28-JUL-2023) Abnormal ECG Confirmed by ALANNAH TORRES, OSIRIS ([id number]), international editorial producer ELTY JOSE ([id number]) on 01/08/2024 10:18:44 AM Referred By: Confirmed By:ANGELITO JAFFE MD
--- NOTE | 2024-01-05 11:40 | RAD_ITS ---
STUDY: X-RAY CHEST REASON FOR EXAM: Male, 68 years old. SOB TECHNIQUE: Single AP portable view of the chest. COMPARISON: Comparison is made with prior study dated July 28, 2023. FINDINGS: EKG electrodes are seen. Small to moderate degree of the right pleural effusion with underlying mild loss at the right lung base. The small amount of fluid is seen in the right major fissure. Mild degree of vascular congestion. Normal size heart. Normal mediastinum and zaynab. Normal visualized pulmonary arteries. Normal visualized aortic arch and descending thoracic aorta. There are diffuse degenerative changes of the visualized thoracic spine. Normal visualized ribs, clavicles, and shoulders. There is no demonstrated abnormality of the visualized soft tissue structures of the upper abdomen. RAD/Chest 1 View (Portable) IMPRESSION: Small to moderate right pleural effusion with mild loss in the right lower lobe. Mild vascular congestion. Electronically Signed: Levi Hathaway MD at 12:25 EDT ,
[2024-01-05 11:48] LABS: Absolute Lymphocyte Count 0.89 X10^3/uL (0.83-4.51); Absolute Neutrophil Count 3.2 X10^3/uL (2.0-7.7); Basophil# 0.07 X10^3/uL; Basophil% 1.4 % (0-1); Eosinophil# 0.02 X10^3/uL; Eosinophils% 0.4 % (0-5); Hemoglobin 14.7 g/dL (13.0-16.5); Lymphocyte # 0.89 X10^3/ul (0.83-4.51); Lymphocyte % 17.7 % (19-41); Mean Corp Hgb Conc 32.7 g/dL (32-36); Mean Corpuscular Hgb 31.5 pg (27.0-32.0); Mean Corpuscular Volume 96.6 fL (80-94); Mean Platelet Vol. 10.6 fl (6.2-12.0); Monocyte# 0.79 X10^3/uL; Monocyte% 15.7 % (0-10); NRBC Flagged by Analyzer 0 % (0-5); Neutrophil # 3.17 X10^3/uL (2.7-7.7); Neutrophil % 63.2 % (47-70); POSITIVE COUNT YES; Platelet Count 129 K/mm3 (150-450); RBC Distribution Width CV 18.6 % (11.6-14.6); RBC Distribution Width SD 64.6 fl (35.1-43.9); Red Blood Count 4.66 M/mm3 (4.6-6.2)
[2024-01-05 11:50] LABS: Differential Indicated SCAN CRITERIA MET
[2024-01-05 12:08] LABS: Differential Comment SCANNED
[2024-01-05 12:09] LABS: Platelet Estimate SLT DEC (ADEQ)
[2024-01-05 12:10] LABS: ALB/GLOB Ratio 0.9 RATIO (0.9-2.4); AST(SGOT) 31 U/L (15-37); Alanine Aminotransfer ALT/SGPT 25 U/L (16-61); Albumin, Serum 3.8 g/dL (3.2-5.0); Alkaline Phosphatase 60 U/L (45-117); Anion Gap 7 (5-15); BUN 48 mg/dL (7-18); BUN/Creat Ratio 24.7 RATIO (10-20); Calcium,Total 9.4 mg/dL (8.5-10.1); Chloride 95 mmol/L (98-107); Creatinine, Serum 1.94 mg/dL (0.70-1.30); EST Glomerular Filtration Rate 37 mL/min (>60); Est Glom Filt Rate - Afr Amer 45 mL/min (>60); Estimated Creatinine Clearance 54.51 ml/min; Globulin 4.1 g/dL (2.2-4.2); Glucose 126 mg/dL (74-106); Protein, Total 7.9 g/dL (6.4-8.2); Sodium Level 133 mmol/L (136-145); Troponin-I HS (w/2H Reflex) 134 pg/mL (3.0-78.0)
[2024-01-05 12:15] LABS: BNP,B-Type NATRIURETIC PEPTIDE 1766.5 pg/mL (0-100)
[2024-01-05] MEDS: Furosemide 40 MG/4 ML Vial IV ×2 (13:31→17:11)
[2024-01-05 13:37] LABS: Reflex Troponin-HS? (from REC) Y
[2024-01-05 14:22] LABS: Troponin-I HS 126 pg/mL (3.0-78.0)
--- NOTE | 2024-01-05 14:24 | PCM.HP.STD ---
HPI - General General Date of Admission: 01/05/24 Date of Service: 01/05/24 Chief Complaint: Increased swelling and shortness of breath HPI Narrative AMISHA ABARCA, is a 68-year-old male history of hypothyroidism, heart failure with preserved ejection fraction, COPD who presented to [facility] ED 01/05/2024 with increasing bilateral lower extremity edema, shortness of breath, and weight gain that of increased over the past couple of weeks. In the ED he was found to have a BNP of 1766, troponin of 134, chest x-ray with vascular congestion, and an increase in creatinine to 1.94 from 1.57 earlier this month. Additionally BP was borderline and hospitalist contacted for admission for heart failure. Patient evaluated at bedside and he reports over the past month he has had increased swelling especially in his legs but has worsened over the past several days with increased abdominal swelling, swelling of legs and groin, increased shortness of breath. Has had some difficulty with urination which she attributes to swelling but does feel he can urinate if he sits down though he is unsure how well he is emptying. No diarrhea, has a little bit of a cough in the morning that he attributes to allergies, no fever, no chest pain or other focal complaints. Of note does report he is being worked up for an amyloidosis and had a bone marrow biopsy and a kidney biopsy and is awaiting referral to [facility]. [facility] Medical History Rheumatoid arthritis Former smoker COPD (chronic obstructive pulmonary disease) Migraines Heart failure Home Medications ?Medication ?Instructions ?Recorded ?Last Taken ?Type albuterol sulfate 90 mcg/actuation 2 inh inhalation Q4H PRN shortness 07/28/23 Unknown History aerosol inhaler of breath or wheezing cetirizine 10 mg tablet (Zyrtec) 10 mg PO DAILY allergies 07/28/23 Unknown History fluticasone propionate 50 1 spray intranasal DAILY allergies 07/28/23 01/05/24 History mcg/actuation nasal spray,suspension (24 Hour Allergy Relief) aspirin 81 mg tablet,delayed 81 mg PO DAILY #30 tabs 07/30/23 01/04/24 Rx release (Tigre Low Dose Aspirin) levothyroxine 25 mcg tablet 25 mcg PO QDAY 09/01/23 01/05/24 History spironolactone 25 mg tablet 25 mg PO DAILY #30 tabs 10/02/23 01/04/24 Rx dapagliflozin propanediol 10 mg 10 mg PO QDAY 12/08/23 01/04/24 History tablet torsemide 20 mg tablet 40 mg PO BID 12/08/23 01/05/24 History fluticasone furoate 100 1 ea inhalation DAILY 01/05/24 01/05/24 History mcg-vilanterol 25 mcg/dose inhalation powder mupirocin 2 % topical ointment 0.25 ea topical TID 01/05/24 01/05/24 History Allergy/AdvReac Type Severity Reaction Status Date / Time soy Allergy Severe Upset Verified 12/08/23 11:21 Stomach amoxicillin (From Augmentin) Allergy Hives Verified 12/08/23 11:23 clavulanic acid (From Allergy Hives Verified 12/08/23 11:23 Augmentin) diphenhydramine (From Allergy Hives Verified 12/08/23 11:21 Benadryl) Surgical History History of appendectomy Social History Smoking Status: Former smoker how long ago did patient quit smokin years alcohol intake: never substance use type: does not use caffeine: Yes Type: coffee Number of servings: 2 ROS ROS Narrative General: Denies fever/chills HENT: Denies headache, denies stuffy nose, denies sore throat EYES: Denies changes in vision Resp: Slight morning cough, increasing shortness of breath Cardiac: Denies chest pain GI: Increased abdominal girth and swelling, denies changes in bowel, denies nausea/vomiting : Some decrease in urination Extremity: Increased swelling in abdomen and lower extremities MSK: Denies weakness Neuro: Denies any numbness/tingling Heme: Denies any bleeding or bruising Skin: Denies rashes Psychiatric: No complaints voiced Vital Signs Vital Signs Vital Signs: 01/05/24 11:09 01/05/24 11:22 01/05/24 11:35 Temperature 97.2 F L Temperature Source Temporal Pulse Rate 79 Respiratory Rate 19 H Respiratory Effort Normal Non-Labored Normal Respiratory Depth Normal Respiratory Pattern Normal Blood Pressure 89/67 L Blood Pressure Mean 74 Pulse Ox 96 Oxygen Delivery Method Room Air Room Air 01/05/24 12:45 01/05/24 13:09 01/05/24 13:22 Temperature 98.2 F Temperature Source Pulse Rate 81 82 Respiratory Rate 18 14 Respiratory Effort Respiratory Depth Respiratory Pattern Blood Pressure 76/67 L 102/81 H 98/74 Blood Pressure Mean 70 88 82 Pulse Ox 88 93 94 Oxygen Delivery Method Room Air Room Air 01/05/24 13:38 Temperature Temperature Source Pulse Rate 81 Respiratory Rate 17 Respiratory Effort Respiratory Depth Respiratory Pattern Blood Pressure 102/76 Blood Pressure Mean 84 Pulse Ox 94 Oxygen Delivery Method Room Air Weight Weight: 134 kg Body Mass Index (BMI) 36.9 Physical Exam Narrative General: Alert, oriented, no apparent distress HEENT: Atraumatic, normocephalic Eyes: Anicteric, normal conjunctiva, extraocular movements grossly intact Neck: Supple Respiratory: Some crackles appreciated, normal respiratory effort Cardiovascular: Regular rate and rhythm GI: Soft, nontender, nondistended Extremities: Significant edema pitting up to thighs and large abdominal girth Musculoskeletal: Moving all extremities Neuro: No overt focal neurological deficits Skin: No rashes appreciated Psych: Cooperative Results Lab / Micro Data 01/05/24 11:30 01/05/24 11:30 Labs: Laboratory Results - last 24 hr 01/05/24 11:30: WBC 5.0, RBC 4.66, Hgb 14.7, Hct 45.0, MCV 96.6 H, MCH 31.5, MCHC 32.7, RDW Std Deviation 64.6 H, RDW Coeff of Ofelia 18.6 H, Plt Count 129 L, MPV 10.6, Immature Gran % (Auto) 1.600 H, Neut % (Auto) 63.2, Lymph % (Auto) 17.7 L, [place] % (Auto) 15.7 H, Eos % (Auto) 0.4, Baso % (Auto) 1.4 H, Absolute Neuts (auto) 3.2, Absolute Lymphs (auto) 0.89, Nucleated RBC % 0, Differential Comment SCANNED, Platelet Estimate SLT DEC, Sodium 133 L, Potassium 4.0, Chloride 95 L, Carbon Dioxide 31.0, Anion Gap 7, BUN 48 H, Creatinine 1.94 H, Estim Creat Clear Calc 54.51, Est GFR (MDRD) Af Amer 45 L, Est GFR (MDRD) Non-Af 37 L, BUN/Creatinine Ratio 24.7 H, Glucose 126 H, Calcium 9.4, Total Bilirubin 3.00 H, AST 31, ALT 25, Alkaline Phosphatase 60, Troponin I High Sens 134 H*, B-Natriuretic Peptide 1766.5 H, Total Protein 7.9, Albumin 3.8, Globulin 4.1, Albumin/Globulin Ratio 0.9 01/05/24 13:45: Troponin I High Sens 126 H* Imaging Radiology Impression Chest X-Ray 01/05/24 11:40 IMPRESSION: Small to moderate right pleural effusion with mild loss in the right lower lobe. Mild vascular congestion. Electronically Signed: Levi Hathaway MD at 12:25 EDT , Assessment & Plan Assessment/Plan (1) Acute exacerbation of chronic heart failure: (2) Hypothyroidism: QUALIFIERS: Hypothyroidism type: unspecified Qualified Code(s): E03.9 - Hypothyroidism, unspecified (3) Renal insufficiency: PLAN: Plan # Acute exacerbation of chronic heart failure with preserved ejection fraction -Chest x-ray with vascular congestion -BNP greater than 1700 -Admit to telemetry -Continue IV lasix, will need to do so cautiously as patient has borderline BP however BP may actually improve as patient is diuresed -Patient reportedly on 40 twice daily of torsemide at home, will start with 40 IV twice daily of Lasix if blood pressure tolerates increase to 80 IV twice daily, blood pressure does not tolerate can also consider switching to Lasix drip -Last echo 07/29/2023 demonstrated EF of 50% with stage III diastolic dysfunction -Given echo was within the last 6 months we will hold off on repeat echo at this time -Daily weights, I's and O's -Fluid restriction, heart healthy diet -Given some concerns with urination due to the swelling will BladderScan to assess for any retaining -Additionally patient with some significant abdominal swelling, suspect secondary to fluid overload but if not improving may need further evaluation #Hypothyroidism -Continue Synthroid -Last TSH 9.81 patient was started on Synthroid at that time -Will recheck given heart failure exacerbation and low blood pressure # Concern for amyloidosis -Patient being worked up on outpatient basis for amyloidosis -Has undergone bone marrow and kidney biopsies -Patient awaiting [facility] appointment for further evaluation and possible treatment # Elevated troponin -Suspect secondary to heart failure exacerbation -134 and down trended to 126 -No chest pain -EKG similar in appearance to EKG in July, no further workup at this time # MOOKIE on CKD unclear subtype -Creatinine 1.94 up from 1.57 earlier this month -May be cardiorenal -IV diuresis -If not improving can consider nephro consult -Daily weights -I's and O's -Hold off on OPAL or ARB initiation #COPD -Continue inhalers #DVT ppx: Heparin subcu Beth Burt MD Time spent in the patient's overall evaluation,decision-making process, review of diagnostic data, adjustment of management, discussion with other providers, nursing nursing and ancillary staff involved in patient's care documentation, 60 minutes Charges/Coding Visit Charges Inpatient E&M: 93646 Init Hosp L2
--- NOTE | 2024-01-05 14:59 | NURSING ---
PCU VANE CHF EXAC
[2024-01-05] MEDS: Albuterol 2.5 MG/3 ML VIAL.NEB. INHALATION (19:55)
[2024-01-05] MEDS: 0.9% Saline Lock 10 ML Syringe IV (21:44)
[2024-01-05] MEDS: Heparin Injection (Vial) 5,000 UNIT/ML VIAL 5000 UNIT SC (21:44)
[2024-01-06] VITALS (17 sets, daily range): BP systolic 81–107; BP diastolic 57–85; PULSE 79–86; RESP 14–18; TEMP 36.2–36.7; O2SAT 92–99; BMI 36.0
[2024-01-06] MEDS: Levothyroxine 25 MCG TABLET PO (06:07)
[2024-01-06] MEDS: Budesonide Respules 0.5 MG/2 ML AMPUL.NEB. INHALATION ×2 (06:52→20:58)
[2024-01-06] MEDS: Albuterol 2.5 MG/3 ML VIAL.NEB. INHALATION ×3 (06:52→20:58)
[2024-01-06 07:38] LABS: Absolute Lymphocyte Count 0.92 X10^3/uL (0.83-4.51); Absolute Neutrophil Count 3.3 X10^3/uL (2.0-7.7); Basophil# 0.08 X10^3/uL; Basophil% 1.5 % (0-1); Eosinophil# 0.01 X10^3/uL; Eosinophils% 0.2 % (0-5); Hematocrit 41.6 % (40-54); Hemoglobin 13.9 g/dL (13.0-16.5); Lymphocyte # 0.92 X10^3/ul (0.83-4.51); Lymphocyte % 17.6 % (19-41); Mean Corp Hgb Conc 33.4 g/dL (32-36); Mean Corpuscular Hgb 32.3 pg (27.0-32.0); Mean Corpuscular Volume 96.5 fL (80-94); Mean Platelet Vol. 10.4 fl (6.2-12.0); Monocyte# 0.88 X10^3/uL; Monocyte% 16.9 % (0-10); NRBC Flagged by Analyzer 0 % (0-5); Neutrophil # 3.27 X10^3/uL (2.7-7.7); Neutrophil % 62.7 % (47-70); POSITIVE MORPHOLOGY YES; Platelet Count 120 K/mm3 (150-450); RBC Distribution Width CV 18.6 % (11.6-14.6); RBC Distribution Width SD 66.1 fl (35.1-43.9); Red Blood Count 4.31 M/mm3 (4.6-6.2); White Blood Count 5.2 K/mm3 (4.4-11.0)
[2024-01-06 07:44] LABS: Differential Indicated SCAN CRITERIA MET
[2024-01-06 08:11] LABS: Anisocytosis 1+
[2024-01-06 08:15] LABS: AST(SGOT) 31 U/L (15-37); Alanine Aminotransfer ALT/SGPT 20 U/L (16-61); Albumin, Serum 3.6 g/dL (3.2-5.0); Alkaline Phosphatase 52 U/L (45-117); Anion Gap 7 (5-15); BUN 50 mg/dL (7-18); BUN/Creat Ratio 26.9 RATIO (10-20); Calcium,Total 9.1 mg/dL (8.5-10.1); Chloride 96 mmol/L (98-107); Cholesterol 54 mg/dL (200); Creatinine, Serum 1.86 mg/dL (0.70-1.30); EST Glomerular Filtration Rate 39 mL/min (>60); Est Glom Filt Rate - Afr Amer 47 mL/min (>60); Estimated Creatinine Clearance 56.13 ml/min; Globulin 3.7 g/dL (2.2-4.2); Glucose 129 mg/dL (74-106); High Density Lipoprotein 21 mg/dL; Magnesium 2.8 mg/dL (1.6-2.6); Potassium 3.9 mmol/L (3.5-5.1); Protein, Total 7.3 g/dL (6.4-8.2); Sodium Level 131 mmol/L (136-145); Triglycerides 59 mg/dL; Very Low Density Lipoprotein 12 mg/dL (5-40)
[2024-01-06] MEDS: Aspirin E.C. 81 MG Tablet PO (08:21)
[2024-01-06] MEDS: Loratadine 10 MG Tablet PO (08:21)
--- NOTE | 2024-01-06 08:54 | US_ITS ---
STUDY: ABDOMINAL ULTRASOUND - RIGHT UPPER QUADRANT REASON FOR VISIT: Male, 68 years old ? ascites TECHNIQUE: Ultrasound evaluation of the right upper quadrant was performed with real-time and static engel-scale imaging. TECHNICAL QUALITY: Adequate. COMPARISON: None. FINDINGS: Liver: The liver measures 19.3 cm. There is a heterogeneous echogenicity of the liver. The bile ducts are within normal limits. There is hepatic color flow. The direction of portal flow is hepatopetal. There is no demonstrated mass lesion. Moderate amount of ascites. Gallbladder: Normal distended gallbladder. The gallbladder wall measures 2 mm. There is a negative sonographic Wright''s sign. There is no pericholecystic fluid. There are gallbladder polyps. Common Bile Duct (C.B.D.): The common bile duct measures 3 mm. Pancreas: Normal size of the head, body and tail of the pancreas. There is normal echogenicity of the pancreas. There is no demonstrated pancreatic mass or cyst. Right Kidney: Normal size of the right kidney. The right kidney measures 10.8 cm. Normal renal cortex. The right cortex measures 1.4 cm. There is no demonstrated renal mass or cyst. There is no right hydronephrosis. US/Abdomen Limited IMPRESSION: Cholesterolosis. Cirrhosis with a moderate amount of ascites. Electronically Signed: Mino Mota MD at 11:00 EDT ,
--- NOTE | 2024-01-06 10:04 | CASEMGMT ---
RN CM to pt room at this time for assessment. Pt is currently off of the floor at this time. CM to follow.
[2024-01-06] MEDS: Fluticasone 0.05% 1 SPRAY NASAL.SRY NASAL (10:56)
[2024-01-06] MEDS: Furosemide 40 MG/4 ML Vial IV (11:15)
[2024-01-06] MEDS: 0.9% Saline Lock 10 ML Syringe IV ×3 (11:15→19:20)
--- NOTE | 2024-01-06 13:15 | CASEMGMT ---
HEBERT FOX Assessment Face to Face with patient for initial transition planning/care coordination assessment. HEBERT FOX introduced self and role at [facility], pt voices understanding. Pt is A&Ox4 and is resting comfortably in bed and is calm. Care providers, pharmacy, and demographics verified. Admitting dx: AE CHF PCP: Rizwana Lam Specialists: Pulmonary through [facility]. [facility]. 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 Pt states that his neighbor that lives underneath him can help him as needed. Pt states that there is an Ramu kid that helps me carry things as needed as well. ADLs/IADLs: Ind with ADLs. See above Transportation: Self, Friend (Alejandro). Denies concerns DME: Cane. Grab bars. BP Monitor. Pulse Ox. Denies further needs HHC/SNF: Denies history or needs Pt?s goal: Home Plan: Home. Pt is scheduled to undergo a Paracentesis today. PT and OT to eval subsequently. At this time, the pt denies the need for HHC, OP Tx, or SNF. Pt states that he feels safe with the support he has at home. Pt states that after they get this fluid off I should be fine to return home. Pt denies further questions or concerns at this time. CM to follow therapy recommendations. Report given to AIRLINE DISPATCHERHEBERT Wahl RN, CM
[2024-01-06] MEDS: Lidocaine 2% (20 ml mdv) 20 ML Vial INFILT (13:35)
--- NOTE | 2024-01-06 13:40 | FLU_PTH ---
PATIENT: AMISHA ABARCA LOC: [facility] U#:[id number] AGE/SX: 68/M ROOM: [facility] RE01/05/[address]: Dr. Reddy Tolbert MD : [id number] BED: 1 DIS: 01/10/2024 SPEC #: [id number] RECD: 01/06/24 13:49 STATUS: ZHAO MULLINS #: [id number] THEO: 01/06/24 13:[address]: Javier Lomeli DEPT: CYTOLOGY RECD BY: Kiran Mahoney ENTERED: 01/06/24 15:02 SP TYPE: Fluid OTHR DR: MD Dr. Beth Burr MD Tissues: PARACENTESIS FLUID Procedures: Special Stain Group II Surgery Specimen Level IV Cytospin Fluid HEADER OPERATION: Paracentesis fluid PRE-OP DIAGNOSIS: Ascites TISSUE SUBMITTED: Paracentesis fluid for cytology DIAGNOSIS CYTOLOGY Paracentesis fluid for cytology (cytospin and cellblock): Negative for malignant cells. See comment. MERCEDES/ 01/07/2024 COMMENT Clinical correlation and appropriate follow up are necessary. CYTOLOGY STUDY Slides are reviewed. CYTOLOGY GROSS Received is 100 ml of red-cloudy fluid labeled with the patient's name and and designated per the requisition as Paracentesis fluid. Submitted for cytology preparation including cell block. Mr 01/06/2024 TC:5 CPT: 06849,66989
[2024-01-06 14:00] LABS: Cytology, Body Fluid / CSF SEE PATHOLOGY REPORT
[2024-01-06 14:10] LABS: Body Fluid Mononuclear WBC # 0.307 10^3/uL; Body Fluid Mononuclear WBC % 96.2 %; Body Fluid Polynuclear WBC # 0.012 10^3/uL; Body Fluid Polynuclear WBC % 3.8 %; Red Cell Count/Body Fluid 0.015 10^6/ul; White Blood Count/Body Fluid 0.319 10^3/uL
[2024-01-06 14:23] LABS: Auto B Fluid Analyzer BKGD Ct COUNTS W/IN LIMITS (W/IN LIMITS); Source- Body Fluid PARACENTESIS
[2024-01-06 14:24] LABS: Appearance/Body Fluid CLOUDY; Color/Body Fluid RED
--- NOTE | 2024-01-06 14:26 | PCM.OP.PRO ---
Procedure Report Date of Procedure: 01/06/24 Assessment & Plan Assessment/Plan (1) Ascites: QUALIFIERS: Ascites type: other type Qualified Code(s): R18.8 - Other ascites PLAN: PROCEDURE: Ultrasound guided paracentesis ORDERING PROVIDER: Dr. Lomeli INDICATION: Male, 68 years old. Ascites. PROVIDER: BHARTI Goodwin TECHNIQUE: The risks, benefits, and alternatives to the procedure were explained to the patient. The specific risks of bleeding, infection, and damage to bowel were detailed and accepted. Witnessed informed consent was obtained. The abdomen was ultrasonographically surveyed. An appropriate pocket of fluid was identified in the right upper quadrant. The skin was prepped with chlorhexidine and sterile field established. 2% lidocaine was used for local anesthetic. Using ultrasound guidance, the peritoneal cavity was accessed with a 5-Venezuelan paracentesis needle/catheter system. The trocar was removed. A total of 9100 ml of clear kayleigh colored fluid was removed from the peritoneal cavity. 100 and mL of this fluid was collected and sent to the laboratory for analysis. The catheter was removed and a sterile dressing was applied. The procedure was well tolerated. IMPRESSION: Successful ultrasound-guided paracentesis with right upper quadrant access site. Procedures Radiology Radiology US Procedures: 25699 Paracentesis
[2024-01-06 14:36] LABS: Lymphocytes 89 %; Monocytes 5 %; Neutrophil (Segs) 6 %
[2024-01-06 14:39] LABS: Body Fluid QC Type(s) BF1Q
[2024-01-06] MEDS: Albumin Human 25% (100 mL) 25 GM/100 ML BAG IV ×2 (14:55→16:35)
--- NOTE | 2024-01-06 15:05 | CHAPLAIN ---
Type of Pastoral Visit _x__ Initial Visit ___ Follow-up Visit ___ On-call Visit ___ General Patient Visit ___ Spiritual Assessment ___ Family Conference ___ Bereavement ___ Rapid Response ___ Code Blue ___ Other (describe below) Pastoral Care Referral From _x__ Patient ___ Family ___ Nurse ___ Physician ___ Barrel Repairer ___ Broaching Machine Operator ___ Other (describe below) Sacrament/Intervention _x__ Active listening ___ Anointing ___ Zoroastrian ___ Bereavement ___ Communion _x__ Mayda exploration ___ _x__ Life review _x__ Prayer ___ Reconciliation ___ Sacrament of Sick ___ Supportive presence ___ Wedding ___ Other (describe below) Pastoral Comments this patient is very talkative and shows great interest in talking with the mh teacher about his life and mayda; pt does explain his rare condition and possible need for transfer out to another hospital as happened before; pt gives his life review which revolves around his relationship to Birthday Gorilla; pt has been for a long time but sees his own desperation at that time as crucial for his spiritual health; patient has stories to tell and 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
--- NOTE | 2024-01-06 15:18 | WOUNDNOTE ---
wound photo: left mercado
--- NOTE | 2024-01-06 16:19 | CASEMGMT ---
Order received from hospitalist for palliative consult. Palliative screening tool completed and sent to [facility].
[2024-01-06 16:30] LABS: Glucose, Body Fluid 147 mg/dL (40-70); LDH,Body Fluid 117 Units/L (Not Establ.); Protein, Body Fluid 4.2 g/dL (Not Establ.)
--- NOTE | 2024-01-06 17:22 | PCM.PN.HOSP ---
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 Patient is being referred to [facility] for further treatment, it has been difficult to diurese the patient because of his hypotension, today I had the patient undergo paracentesis with removal of 9 L of fluid. I think it is likely tomorrow he will have to undergo another paracentesis-I will discuss this with radiology. I also talked with the patient's decommissioning well site manager Dr. Lester, he states that the patient's prognosis is very poor and he recommends that the patient talk with either hospice or palliative care, I brought this up to the patient and he has agreed to talk with palliative care. Objective Data Objective Data Vital Signs: Vital Signs Temp Pulse Resp BP Pulse Ox O2 Del Method O2 Flow Rate 97.8 F 79 16 81/60 L 96 Room Air 2 01/06/24 16:57 01/06/24 16:57 01/06/24 16:57 01/06/24 16:57 01/06/24 16:57 01/06/24 16:59 01/05/24 22:00 Oxygen Flow Rate (L/min) 2 Oxygen Delivery Method Room Air Weight: 130.7 kg Body Mass Index (BMI) 36.0 Intake & Output: Intake and Output for Last 24 Hours 01/04/24 01/05/24 01/06/24 23:59 23:59 23:59 Intake Total 340 / 340 Output Total 87296 / 23454 Balance -9660 / -9660 Lab / Micro Data 01/06/24 07:15 01/06/24 07:15 Labs: Laboratory Results - last 24 hr 01/06/24 07:15: WBC 5.2, RBC 4.31 L, Hgb 13.9, Hct 41.6, MCV 96.5 H, MCH 32.3 H, MCHC 33.4, RDW Std Deviation 66.1 H, RDW Coeff of Ofelia 18.6 H, Plt Count 120 L, MPV 10.4, Immature Gran % (Auto) 1.100 H, Neut % (Auto) 62.7, Lymph % (Auto) 17.6 L, Roberts % (Auto) 16.9 H, Eos % (Auto) 0.2, Baso % (Auto) 1.5 H, Absolute Neuts (auto) 3.3, Absolute Lymphs (auto) 0.92, Nucleated RBC % 0, Anisocytosis 1+, Sodium 131 L, Potassium 3.9, Chloride 96 L, Carbon Dioxide 28.0, Anion Gap 7, BUN 50 H, Creatinine 1.86 H, Estim Creat Clear Calc 56.13, Est GFR (MDRD) Af Amer 47 L, Est GFR (MDRD) Non-Af 39 L, BUN/Creatinine Ratio 26.9 H, Glucose 129 H, Calcium 9.1, Magnesium 2.8 H, Total Bilirubin 3.10 H, AST 31, ALT 20, Alkaline Phosphatase 52, Total Protein 7.3, Albumin 3.6, Globulin 3.7, Albumin/Globulin Ratio 1.0, Triglycerides 59, Cholesterol 54, LDL Cholesterol 21, VLDL Cholesterol 12, HDL Cholesterol 21 L, TSH 10.70 H 01/06/24 13:40: Fluid Source PARACENTESIS, Fluid Color RED, Fluid Appearance CLOUDY, Fluid WBC 0.319, Fluid RBC 0.015, Fluid Tot Cell Count 0.340, Fld Polynuclear WBCs # 0.012, Fld Polynuclear WBCs % 3.8, Fluid Mononuclear WBCs 0.307, Fld Mononuclear WBCs % 96.2, Fluid Neutrophils 6, Fluid Lymphocytes 89, Fluid Monocytes 5, Fl Pathologist Comment May follow, Fluid Glucose 147 H, Fluid Total Protein 4.2, Fluid LDH 117, Fluid Comment 2 SEE COMMENT Radiography Diagnostic Testing: Radiology Impression Abdomen Ultrasound 01/06/24 08:54 IMPRESSION: Cholesterolosis. Cirrhosis with a moderate amount of ascites. Electronically Signed: Mino Mota MD at 11:00 EDT , Physical Exam Const alert, oriented x3 and no apparent distress Constitutional Narrative: Patient appears edematous, he appears older than his stated age General Appearance: cooperative, well kempt and well developed Orientation / Consciousness: awake, oriented to person, oriented to place and oriented to time HEENT normocephalic and moist oral mucous membranes Eyes PERRL, EOMs intact bilaterally and conjunctivae normal Neck supple, no JVD, thyroid normal and no carotid bruits General: trachea midline Resp normal respiratory effort and clear to auscultation bilaterally Auscultation: Negative for rales, rhonchi or wheezes Cardio regular rate, regular rhythm, no murmurs, no rub and no gallops GI normal to inspection, nondistended, normoactive bowel sounds, soft to palpation and non-tender GI Narrative: Patient has moderate distention of his abdomen Extremity Extremity Narrative: Patient has severe edema of both legs Skin no rashes or lesions noted General Skin Exam: no breakdown Neuro oriented x3, CN's II-XII intact bilaterally, no focal motor deficits and no sensory deficits noted Sensorium / Orientation: awake and alert Speech: speech normal Psych affect normal Assessment & Plan Assessment/Plan (1) Acute exacerbation of chronic heart failure: PLAN: Plan 1. Acute exacerbation of chronic diastolic heart failure-I will place the patient on midodrine in an attempt to raise his blood pressure, he remains on IV Lasix at this time, I will place him on spironolactone if he is able to tolerate it with his blood pressures. 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 Total clinical time spent by myself addressing the patient's medical issues, reviewing all of his data, and collaborating with patient's care team: 50 minutes Charges/Coding Visit Charges Inpatient E&M: 52050 Subs Hosp L3
[2024-01-06] MEDS: Albumin Human 25% (50 mL) 12.5 GM/50 ML IV.SOLN IV (18:20)
[2024-01-06] MEDS: Heparin Injection (Vial) 5,000 UNIT/ML VIAL 5000 UNIT SC (19:20)
[2024-01-07] VITALS (18 sets, daily range): BP systolic 79–95; BP diastolic 53–69; PULSE 80–85; RESP 16–20; TEMP 35.9–36.9; O2SAT 93–98; BMI 33.8; BMI 33.3
[2024-01-07] MEDS: Levothyroxine 25 MCG TABLET PO (04:57)
[2024-01-07 06:27] LABS: Absolute Lymphocyte Count 1.11 X10^3/uL (0.83-4.51); Absolute Neutrophil Count 2.9 X10^3/uL (2.0-7.7); Basophil# 0.06 X10^3/uL; Basophil% 1.2 % (0-1); Eosinophil# 0.01 X10^3/uL; Eosinophils% 0.2 % (0-5); Hematocrit 45.2 % (40-54); Hemoglobin 14.8 g/dL (13.0-16.5); Lymphocyte # 1.11 X10^3/ul (0.83-4.51); Lymphocyte % 21.6 % (19-41); Mean Corp Hgb Conc 32.7 g/dL (32-36); Mean Corpuscular Hgb 32.2 pg (27.0-32.0); Mean Corpuscular Volume 98.3 fL (80-94); Mean Platelet Vol. 10.5 fl (6.2-12.0); Monocyte# 0.96 X10^3/uL; Monocyte% 18.6 % (0-10); NRBC Flagged by Analyzer 0 % (0-5); Neutrophil # 2.91 X10^3/uL (2.7-7.7); Neutrophil % 56.5 % (47-70); POSITIVE MORPHOLOGY YES; Platelet Count 118 K/mm3 (150-450); RBC Distribution Width SD 67.9 fl (35.1-43.9); White Blood Count 5.2 K/mm3 (4.4-11.0)
[2024-01-07] MEDS: Budesonide Respules 0.5 MG/2 ML AMPUL.NEB. INHALATION (06:57)
[2024-01-07] MEDS: Albuterol 2.5 MG/3 ML VIAL.NEB. INHALATION ×2 (06:57→19:07)
[2024-01-07 06:59] LABS: Anion Gap 10 (5-15); BUN 57 mg/dL (7-18); BUN/Creat Ratio 32.6 RATIO (10-20); Calcium,Total 9.2 mg/dL (8.5-10.1); Chloride 95 mmol/L (98-107); Creatinine, Serum 1.75 mg/dL (0.70-1.30); EST Glomerular Filtration Rate 41 mL/min (>60); Est Glom Filt Rate - Afr Amer 50 mL/min (>60); Estimated Creatinine Clearance 59.66 ml/min; Free T3 1.8 pg/mL (2.18-3.98); Glucose 144 mg/dL (74-106); Sodium Level 133 mmol/L (136-145); T4 Free Direct 1.11 ng/dL (0.76-1.46)
[2024-01-07 07:04] LABS: Differential Indicated SCAN CRITERIA MET
[2024-01-07] MEDS: Aspirin E.C. 81 MG Tablet PO (08:25)
[2024-01-07] MEDS: Midodrine HCl 5 MG Tablet 10 MG PO ×2 (08:25→11:08)
[2024-01-07] MEDS: Loratadine 10 MG Tablet PO (08:26)
[2024-01-07] MEDS: Fluticasone 0.05% 1 SPRAY NASAL.SRY NASAL (08:26)
[2024-01-07 08:39] LABS: Anisocytosis 1+
--- NOTE | 2024-01-07 12:21 | PCM.PN.HOSP ---
Reason for Visit Reason for Visit: Diagnoses Hypothyroidism, unspecified (01/05/24) Heart failure, unspecified (01/05/24) Disorder of kidney and ureter, unspecified (01/05/24) Other ascites (01/05/24) Subjective Subjective Patient was seen and examined today, he remains on room air, we have not been able to give IV Lasix today due to low systolic blood pressure. Patient will go down for another paracentesis today. Patient had a question asked me about whether he should follow-up with [facility] concerning his amyloid disease, I told him that he should follow-up with them to see if they had any suggestions on treatment. Objective Data Objective Data Vital Signs: Vital Signs Temp Pulse Resp BP Pulse Ox O2 Del Method O2 Flow Rate 97.7 F L 85 16 82/60 L 96 Room Air 2 01/07/24 11:09 01/07/24 11:09 01/07/24 11:09 01/07/24 11:09 01/07/24 11:01/07/24 11:09 01/05/24 22:00 Oxygen Flow Rate (L/min) 2 Oxygen Delivery Method Room Air Weight: 121.8 kg Body Mass Index (BMI) 33.3 Intake & Output: Intake and Output for Last 24 Hours 01/05/24 01/06/24 01/07/24 23:59 23:59 23:59 Intake Total 1490 / 1490 Output Total 95766 / 46105 275 / 275 Balance -9110 / -9110 -275 / -275 Lab / Micro Data 01/07/24 05:22 01/07/24 05:22 Labs: Laboratory Results - last 24 hr 01/06/24 13:40: Fluid Source PARACENTESIS, Fluid Color RED, Fluid Appearance CLOUDY, Fluid WBC 0.319, Fluid RBC 0.015, Fluid Tot Cell Count 0.340, Fld Polynuclear WBCs # 0.012, Fld Polynuclear WBCs % 3.8, Fluid Mononuclear WBCs 0.307, Fld Mononuclear WBCs % 96.2, Fluid Neutrophils 6, Fluid Lymphocytes 89, Fluid Monocytes 5, Fl Pathologist Comment May follow, Fluid Glucose 147 H, Fluid Total Protein 4.2, Fluid LDH 117, Fluid Comment 2 SEE COMMENT, Miscellaneous Cytology SEE PATHOLOGY REPORT 01/07/24 05:22: WBC 5.2, RBC 4.60, Hgb 14.8, Hct 45.2, MCV 98.3 H, MCH 32.2 H, MCHC 32.7, RDW Std Deviation 67.9 H, RDW Coeff of Ofelia 19.0 H, Plt Count 118 L, MPV 10.5, Immature Gran % (Auto) 1.900 H, Neut % (Auto) 56.5, Lymph % (Auto) 21.6, Clarke % (Auto) 18.6 H, Eos % (Auto) 0.2, Baso % (Auto) 1.2 H, Absolute Neuts (auto) 2.9, Absolute Lymphs (auto) 1.11, Nucleated RBC % 0, Anisocytosis 1+, Sodium 133 L, Potassium 4.0, Chloride 95 L, Carbon Dioxide 28.0, Anion Gap 10, BUN 57 H, Creatinine 1.75 H, Estim Creat Clear Calc 59.66, Est GFR (MDRD) Af Amer 50 L, Est GFR (MDRD) Non-Af 41 L, BUN/Creatinine Ratio 32.6 H, Glucose 144 H, Calcium 9.2, Free T4 1.11, Free T3 pg/dL 1.8 L Micro: Microbiology 01/06/24 13:40 Fluid - Ascites Gram Stain - Final Physical Exam Narrative alert, oriented x3 and no apparent distress Constitutional Narrative: Patient appears edematous, he appears older than his stated age General Appearance: cooperative, well kempt and well developed Orientation / Consciousness: awake, oriented to person, oriented to place and oriented to time HEENT normocephalic and moist oral mucous membranes Eyes PERRL, EOMs intact bilaterally and conjunctivae normal Neck supple, no JVD, thyroid normal and no carotid bruits General: trachea midline Resp normal respiratory effort and clear to auscultation bilaterally Auscultation: Negative for rales, rhonchi or wheezes Cardio regular rate, regular rhythm, no murmurs, no rub and no gallops GI normal to inspection, nondistended, normoactive bowel sounds, soft to palpation and non-tender GI Narrative: Patient has moderate distention of his abdomen Extremity Extremity Narrative: Patient has severe edema of both legs Skin no rashes or lesions noted General Skin Exam: no breakdown Neuro oriented x3, CN's II-XII intact bilaterally, no focal motor deficits and no sensory deficits noted Sensorium / Orientation: awake and alert Speech: speech normal Psych affect normal Assessment & Plan Assessment/Plan (1) Acute exacerbation of chronic heart failure: PLAN: Plan 1. Acute exacerbation of chronic diastolic heart failure-I will place the patient on midodrine in an attempt to raise his blood pressure, he remains on IV Lasix at this time, it will continue to be held if his blood pressure is under 90 systolic, patient was placed on Aldactone yesterday. 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 Total clinical time spent by myself addressing the patient's medical issues, reviewing all of his data, and collaborating with patient's care team: 35 minutes Charges/Coding Visit Charges Inpatient E&M: 19169 Subs Hosp L2
[2024-01-07] MEDS: Lidocaine 2% (20 ml mdv) 20 ML Vial INFILT (13:36)
--- NOTE | 2024-01-07 14:11 | PCM.OP.PRO ---
Procedure Report Date of Procedure: 01/07/24 Assessment & Plan Assessment/Plan (1) Ascites: QUALIFIERS: Ascites type: other type Qualified Code(s): R18.8 - Other ascites PLAN: PROCEDURE: Ultrasound guided paracentesis ORDERING PROVIDER: Dr. Lomeli INDICATION: Male, 68 years old. Ascites. PROVIDER: BHARTI Goodwin TECHNIQUE: The risks, benefits, and alternatives to the procedure were explained to the patient. The specific risks of bleeding, infection, and damage to bowel were detailed and accepted. Witnessed informed consent was obtained. The abdomen was ultrasonographically surveyed. An appropriate pocket of fluid was identified in the right lower quadrant. The skin was prepped with chlorhexidine and sterile field established. 2% lidocaine was used for local anesthetic. Using ultrasound guidance, the peritoneal cavity was accessed with a 5-Monegasque paracentesis needle/catheter system. The trocar was removed. A total of 3750 ml of kayleigh colored fluid was removed from the peritoneal cavity. The catheter was removed and a sterile dressing was applied. The procedure was well tolerated. IMPRESSION: Successful ultrasound-guided paracentesis with right lower quadrant access site. Procedures Radiology Radiology US Procedures: 61321 Paracentesis
[2024-01-07] MEDS: Furosemide 500 MG in Empty Viaflex 50 mL 1 EACH CONT INF (15:50)
[2024-01-07] MEDS: Albumin Human 25% (100 mL) 25 GM/100 ML BAG IV (15:50)
[2024-01-07] MEDS: 0.9% Saline Lock 10 ML Syringe IV (15:53)
[2024-01-07 16:00] LABS: Pathologist Comment/Body Fluid Reviewed
[2024-01-07] MEDS: Midodrine HCl 5 MG Tablet 15 MG PO (17:50)
[2024-01-07] MEDS: Heparin Injection (Vial) 5,000 UNIT/ML VIAL 5000 UNIT SC (21:39)
[2024-01-08] VITALS (13 sets, daily range): BP systolic 80–103; BP diastolic 58–72; PULSE 80–84; RESP 16–18; TEMP 36.3–36.6; O2SAT 90–98
[2024-01-08] MEDS: Levothyroxine 25 MCG TABLET PO (05:16)
[2024-01-08 05:44] LABS: ALB/GLOB Ratio 1.1 RATIO (0.9-2.4); AST(SGOT) 31 U/L (15-37); Alanine Aminotransfer ALT/SGPT 20 U/L (16-61); Albumin, Serum 3.6 g/dL (3.2-5.0); Alkaline Phosphatase 48 U/L (45-117); Anion Gap 11 (5-15); BUN 60 mg/dL (7-18); BUN/Creat Ratio 36.1 RATIO (10-20); Calcium,Total 8.7 mg/dL (8.5-10.1); Chloride 97 mmol/L (98-107); Creatinine, Serum 1.66 mg/dL (0.70-1.30); EST Glomerular Filtration Rate 44 mL/min (>60); Est Glom Filt Rate - Afr Amer 53 mL/min (>60); Estimated Creatinine Clearance 60.72 ml/min; Globulin 3.2 g/dL (2.2-4.2); Glucose 151 mg/dL (74-106); Potassium 3.9 mmol/L (3.5-5.1); Protein, Total 6.8 g/dL (6.4-8.2); Sodium Level 132 mmol/L (136-145)
--- NOTE | 2024-01-08 07:23 | PN.HOSP_ITS ---
Reason for Visit Reason for Visit: Diagnoses Hypothyroidism, unspecified (01/05/24) Heart failure, unspecified (01/05/24) Disorder of kidney and ureter, unspecified (01/05/24) Other ascites (01/05/24) Subjective Subjective Patient is a 68-year-old old gentleman with history of cardiac amyloidosis who presented with shortness of breath and assessment of acute exacerbation of CHF made admitted to a monitored bed for further management Objective Data Objective Data Vital Signs: Vital Signs Temp Pulse Resp BP Pulse Ox O2 Del Method O2 Flow Rate 97.9 F 81 18 84/60 L 96 Room Air 2 01/08/24 06:00 01/08/24 06:00 01/08/24 06:00 01/08/24 06:00 01/08/24 06:00 01/08/24 06:00 01/05/24 22:00 Oxygen Flow Rate (L/min) 2 Oxygen Delivery Method Room Air Weight: 121.8 kg Body Mass Index (BMI) 33.3 Intake & Output: Intake and Output for Last 24 Hours 01/06/24 01/07/24 01/08/24 23:59 23:59 23:59 Intake Total 1490 / 1490 900 / 900 100 / 100 Output Total 97843 / 84972 4400 / 4400 400 / 400 Balance -9110 / -9110 -3500 / -3500 -300 / -300 Lab / Micro Data 01/07/24 05:22 01/08/24 04:15 Labs: Laboratory Results - last 24 hr 01/06/24 13:40: Fl Pathologist Comment Reviewed, Miscellaneous Cytology SEE PATHOLOGY REPORT 01/07/24 05:22: Anisocytosis 1+ 01/08/24 04:15: Sodium 132 L, Potassium 3.9, Chloride 97 L, Carbon Dioxide 24.0, Anion Gap 11, BUN 60 H, Creatinine 1.66 H, Estim Creat Clear Calc 60.72, Est GFR (MDRD) Af Amer 53 L, Est GFR (MDRD) Non-Af 44 L, BUN/Creatinine Ratio 36.1 H, G lucose 151 H, Calcium 8.7, Total Bilirubin 2.70 H, AST 31, ALT 20, Alkaline Phosphatase 48, Total Protein 6.8, Albumin 3.6, Globulin 3.2, Albumin/Globulin Ratio 1.1 Micro: Microbiology 01/06/24 13:40 Fluid - Ascites Gram Stain - Final Physical Exam Narrative GENERAL: cooperative HEENT: Atraumatic; normocephalic EYES; Anicteric, Normal Conjunctiva NECK; supple, normal thyroid, RESPIRATORY: Diminished to auscultation CARDIOVASCULAR: Regular S1 S2, GI: soft, normoactive bowel sounds, abdominal distention : No Renal angle tenderness; EXTREMITIES: Significant edema involving both lower extremities MUSCULOSKELETAL: no muscle wasting NEURO: Awake; no lateralizing signs. SKIN: No Rash PSYCH; Flat affect Assessment & Plan Assessment/Plan (1) Acute exacerbation of chronic heart failure: PLAN: Plan Patient is a 68-year-old old gentleman with history of cardiac amyloidosis who presented with shortness of breath and assessment of acute exacerbation of CHF made admitted to a monitored bed for further management 1. Acute on chronic congestive heart failure with preserved ejection fraction ? Secondary to cardiac amyloidosis. Patient admitted to regular nursing floor management strict input and output, daily weights low-sodium diet as well as diuretic therapy. Patient diuretic therapy was complicated by hypotension necessitating initiation of midodrine and subsequently Lasix drip 2. Cardiac amyloidosis ? Patient is followed byCardiology as outpatient 3. Ascites ? 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 Patient underwent ultrasound-guided paracentesis with 3.7 L of ascitic fluid taken off 4.Hypothyroidism - Patient is on levothyroxine home dose continued 5. Chronic kidney disease stage III ? Creatinine on admission was 1.94 kidney function did improve with diuretic therapy 6. Class I obesity with BMI of 33.6 ? Complicating care 7. DVT prophylaxis ? Subcu heparin Time spent in the patient's overall evaluation,decision-making process, review of diagnostic data, adjustment of management, discussion with other providers, nursing nursing and ancillary staff involved in patient's care documentation, 36 Minutes Charges/Coding Visit Charges Inpatient E&M: 11139 Subs Hosp L2
[2024-01-08] MEDS: Loratadine 10 MG Tablet PO (08:53)
[2024-01-08] MEDS: Midodrine HCl 5 MG Tablet 15 MG PO ×3 (08:53→16:57)
[2024-01-08] MEDS: Aspirin E.C. 81 MG Tablet PO (08:53)
[2024-01-08] MEDS: Heparin Injection (Vial) 5,000 UNIT/ML VIAL 5000 UNIT SC ×2 (08:53→22:09)
[2024-01-08] MEDS: Spironolactone 25 MG Tablet PO (08:53)
[2024-01-08] MEDS: Fluticasone 0.05% 1 SPRAY NASAL.SRY NASAL (08:53)
--- NOTE | 2024-01-08 14:44 | CASEMGMT ---
RN CM in to discuss needs at discharge. Discussed progress with therapy, patient would like outpatient therapy, daughter at bedside. Patient and daughter deny further needs. Green sheet placed on chart for outpatient therapy.
[2024-01-08] MEDS: Albuterol 2.5 MG/3 ML VIAL.NEB. INHALATION (19:32)
[2024-01-08] MEDS: Budesonide Respules 0.5 MG/2 ML AMPUL.NEB. INHALATION (19:33)
[2024-01-08] MEDS: 0.9% Saline Lock 10 ML Syringe IV (22:13)
[2024-01-08 23:50] LABS: Mucous, Urine 0 SEEN /hpf (<or=2+); Red Blood Cells-Urine 0 SEEN /hpf (0-5); Squamous Epithelial Cells - UA 0 SEEN /hpf (0-5); White Blood Cells 0 SEEN /hpf (0-5)
[2024-01-08 23:54] LABS: Color, Urine Yellow (Yellow); Glucose, Dipstick Normal (Normal); Ketone-Dipstick Negative (Negative); Leukocyte Esterase-Dipstick Negative /ul (Negative); Nitrite-Dipstick Negative (Negative); Occult Blood-Urine Negative /ul (Negative); Protein-Dipstick 30 mg/dl (Negative); Specific Gravity, Urine 1.015 (1.002-1.030); Urine Bilirubin Dipstick Negative (Negative); Urine Clarity Sl. Cloudy (Clear); Urine Urobilinogen Normal (Normal)
[2024-01-09] VITALS (10 sets, daily range): BP systolic 81–96; BP diastolic 58–64; PULSE 78–84; RESP 14–18; TEMP 36.4–36.9; O2SAT 95–98; BMI 33.3
[2024-01-09 00:26] LABS: Bacteria 2+ /hpf (None Seen); Hyaline Cast 0-5 SEEN /lpf (0-5)
[2024-01-09 00:27] LABS: Other Crystals-Urine SCANNED /hpf (None Seen)
[2024-01-09] MEDS: Levothyroxine 25 MCG TABLET PO (06:35)
[2024-01-09] MEDS: Budesonide Respules 0.5 MG/2 ML AMPUL.NEB. INHALATION ×2 (06:54→19:47)
[2024-01-09] MEDS: Albuterol 2.5 MG/3 ML VIAL.NEB. INHALATION ×2 (06:54→13:09)
--- NOTE | 2024-01-09 07:09 | PN.HOSP_ITS ---
Reason for Visit Reason for Visit: Diagnoses Hypothyroidism, unspecified (01/05/24) Heart failure, unspecified (01/05/24) Disorder of kidney and ureter, unspecified (01/05/24) Other ascites (01/05/24) Subjective Subjective Patient seen continues to improve clinically. His weight is down from 134 on admission to 121.5. Plan is to discontinue Lasix drip and start patient on scheduled oral Lasix in anticipation of possible discharge in a.m. Objective Data Objective Data Vital Signs: Vital Signs Temp Pulse Resp BP Pulse Ox O2 Del Method O2 Flow Rate 97.5 F L 78 16 96/64 95 Room Air 2 01/09/24 04:00 01/09/24 06:55 01/09/24 06:55 01/09/24 04:00 01/09/24 06:55 01/09/24 06:55 01/05/24 22:00 Oxygen Flow Rate (L/min) 2 Oxygen Delivery Method Room Air Weight: 121.5 kg Body Mass Index (BMI) 33.3 Intake & Output: Intake and Output for Last 24 Hours 01/07/24 01/08/24 01/09/24 23:59 23:59 23:59 Intake Total 900 / 900 1210 / 1330 120 / 120 Output Total 4400 / 4400 550 / 800 250 / 250 Balance -3500 / -3500 660 / 530 -130 / -130 Lab / Micro Data 01/09/24 06:35 01/09/24 06:35 Labs: Laboratory Results - last 24 hr 01/08/24 07:25: Urine Color Yellow, Urine Clarity Sl. Cloudy, Urine pH 6.0, Ur Specific [place] 1.015, Urine Protein 30 H, Urine Glucose (UA) Normal, Urine Ketones Negative, Urine Occult Blood Negative, Urine Nitrite Negative, Urine Bilirubin Negative, Urine Urobilinogen Normal, Ur Leukocyte Esterase Negative, Urine RBC 0 SEEN, Urine WBC 0 SEEN, Ur Squamous Epith Cells 0 SEEN, Other Crystals SCANNED, Urine Bacteria 2+, Hyaline Casts 0-5 SEEN, Urine Mucus 0 SEEN Micro: Microbiology 01/06/24 13:40 Fluid - Ascites Gram Stain - Final 01/06/24 13:40 Fluid - Ascites Anaerobic Culture - Preliminary No growth in 48 hours. Physical Exam Narrative GENERAL: cooperative HEENT: Atraumatic; normocephalic EYES; Anicteric, Normal Conjunctiva NECK; supple, normal thyroid, RESPIRATORY: Diminished to auscultation CARDIOVASCULAR: Regular S1 S2, GI: soft, normoactive bowel sounds, abdominal distention : No Renal angle tenderness; EXTREMITIES: Significant edema involving both lower extremities MUSCULOSKELETAL: no muscle wasting NEURO: Awake; no lateralizing signs. SKIN: No Rash PSYCH; Flat affect Assessment & Plan Assessment/Plan (1) Acute exacerbation of chronic heart failure: PLAN: Plan Patient is a 68-year-old old gentleman with history of cardiac amyloidosis who presented with shortness of breath and assessment of acute exacerbation of CHF made admitted to a monitored bed for further management 1. Acute on chronic congestive heart failure with preserved ejection fraction ? Secondary to cardiac amyloidosis. Patient admitted to regular nursing floor management strict input and output, daily weights low-sodium diet as well as diuretic therapy. Patient diuretic therapy was complicated by hypotension necessitating initiation of midodrine and subsequently Lasix drip ? 01/09/2024; Patient seen continues to improve clinically. His weight is down from 134 on admission to 121.5. Plan is to discontinue Lasix drip and start patient on scheduled oral Lasix in anticipation of possible discharge in a.m. 2. Cardiac amyloidosis ? Patient is followed byCardiology as outpatient 3. Ascites ? 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 Patient underwent ultrasound-guided paracentesis with 3.7 L of ascitic fluid taken off 4.Hypothyroidism - Patient is on levothyroxine home dose continued 5. Chronic kidney disease stage III ? Creatinine on admission was 1.94 kidney function did improve with diuretic therapy 6. Class I obesity with BMI of 33.6 ? Complicating care 7. DVT prophylaxis ? Subcu heparin Time spent in the patient's overall evaluation,decision-making process, review of diagnostic data, adjustment of management, discussion with other providers, nursing nursing and ancillary staff involved in patient's care documentation, 36 Minutes Charges/Coding Visit Charges Inpatient E&M: 31056 Subs Hosp L2
[2024-01-09 07:11] LABS: Absolute Lymphocyte Count 1.11 X10^3/uL (0.83-4.51); Absolute Neutrophil Count 2.7 X10^3/uL (2.0-7.7); Basophil# 0.06 X10^3/uL; Basophil% 1.2 % (0-1); Eosinophil# 0.01 X10^3/uL; Eosinophils% 0.2 % (0-5); Hematocrit 44.3 % (40-54); Hemoglobin 14.5 g/dL (13.0-16.5); Lymphocyte # 1.11 X10^3/ul (0.83-4.51); Lymphocyte % 22.8 % (19-41); Mean Corp Hgb Conc 32.7 g/dL (32-36); Mean Corpuscular Volume 97.8 fL (80-94); Mean Platelet Vol. 10.7 fl (6.2-12.0); Monocyte# 0.96 X10^3/uL; Monocyte% 19.8 % (0-10); NRBC Flagged by Analyzer 0 % (0-5); Neutrophil # 2.66 X10^3/uL (2.7-7.7); Neutrophil % 54.8 % (47-70); POSITIVE MORPHOLOGY YES; Platelet Count 120 K/mm3 (150-450); RBC Distribution Width CV 19.2 % (11.6-14.6); RBC Distribution Width SD 66.1 fl (35.1-43.9); Red Blood Count 4.53 M/mm3 (4.6-6.2); White Blood Count 4.9 K/mm3 (4.4-11.0)
[2024-01-09 07:31] LABS: Anion Gap 7 (5-15); BUN 55 mg/dL (7-18); BUN/Creat Ratio 35.5 RATIO (10-20); Calcium,Total 8.7 mg/dL (8.5-10.1); Chloride 99 mmol/L (98-107); Creatinine, Serum 1.55 mg/dL (0.70-1.30); EST Glomerular Filtration Rate 48 mL/min (>60); Est Glom Filt Rate - Afr Amer 58 mL/min (>60); Estimated Creatinine Clearance 64.95 ml/min; Glucose 134 mg/dL (74-106); Magnesium 2.7 mg/dL (1.6-2.6); Potassium 3.9 mmol/L (3.5-5.1); Sodium Level 134 mmol/L (136-145)
[2024-01-09 08:52] LABS: Anisocytosis 2+; Differential Indicated SCAN CRITERIA MET; Red Cell Morphology N CHROM NORMAL (NORM C&C)
[2024-01-09] MEDS: Furosemide 20 MG Tablet 60 MG PO ×2 (10:00→17:55)
[2024-01-09] MEDS: Midodrine HCl 5 MG Tablet 15 MG PO ×3 (10:01→15:42)
[2024-01-09] MEDS: 0.9% Saline Lock 10 ML Syringe IV (10:01)
[2024-01-09] MEDS: Spironolactone 25 MG Tablet PO (10:02)
[2024-01-09] MEDS: Aspirin E.C. 81 MG Tablet PO (10:02)
[2024-01-09] MEDS: Loratadine 10 MG Tablet PO (10:02)
[2024-01-09] MEDS: Heparin Injection (Vial) 5,000 UNIT/ML VIAL 5000 UNIT SC ×2 (10:03→20:40)
[2024-01-09] MEDS: Fluticasone 0.05% 1 SPRAY NASAL.SRY NASAL (10:03)
[2024-01-10] MEDS: Levothyroxine 25 MCG TABLET PO (02:56)
[2024-01-10 03:00] VITALS: BP 93/60; PULSE 79; RESP 18; TEMP 36.2; O2SAT 93
[2024-01-10 05:36] LABS: Absolute Neutrophil Count 2.7 X10^3/uL (2.0-7.7); Basophil# 0.07 X10^3/uL; Basophil% 1.4 % (0-1); Eosinophil# 0.02 X10^3/uL; Eosinophils% 0.4 % (0-5); Hematocrit 42.8 % (40-54); Lymphocyte % 20.7 % (19-41); Mean Corp Hgb Conc 32.7 g/dL (32-36); Mean Corpuscular Hgb 32.1 pg (27.0-32.0); Mean Corpuscular Volume 98.2 fL (80-94); Mean Platelet Vol. 10.2 fl (6.2-12.0); Monocyte# 0.95 X10^3/uL; Monocyte% 19.7 % (0-10); NRBC Flagged by Analyzer 0 % (0-5); Neutrophil # 2.72 X10^3/uL (2.7-7.7); Neutrophil % 56.4 % (47-70); POSITIVE MORPHOLOGY YES; Platelet Count 120 K/mm3 (150-450); RBC Distribution Width CV 18.9 % (11.6-14.6); RBC Distribution Width SD 67.1 fl (35.1-43.9); Red Blood Count 4.36 M/mm3 (4.6-6.2); White Blood Count 4.8 K/mm3 (4.4-11.0)
[2024-01-10 06:00] VITALS: BMI 31.8
[2024-01-10 06:02] LABS: Anion Gap 8 (5-15); BUN 56 mg/dL (7-18); BUN/Creat Ratio 38.6 RATIO (10-20); Calcium,Total 8.7 mg/dL (8.5-10.1); Chloride 99 mmol/L (98-107); Creatinine, Serum 1.45 mg/dL (0.70-1.30); EST Glomerular Filtration Rate 51 mL/min (>60); Est Glom Filt Rate - Afr Amer 62 mL/min (>60); Estimated Creatinine Clearance 69.43 ml/min; Glucose 152 mg/dL (74-106); Potassium 3.6 mmol/L (3.5-5.1); Sodium Level 134 mmol/L (136-145)
[2024-01-10 06:23] LABS: Differential Indicated SCAN CRITERIA MET
[2024-01-10 06:43] LABS: Anisocytosis 2+
[2024-01-10] MEDS: Albuterol 2.5 MG/3 ML VIAL.NEB. INHALATION ×2 (06:50→12:57)
[2024-01-10] MEDS: Budesonide Respules 0.5 MG/2 ML AMPUL.NEB. INHALATION (06:50)
[2024-01-10 06:52] VITALS: PULSE 80; RESP 16; O2SAT 98
--- NOTE | 2024-01-10 08:07 | PCM.PN.HOSP ---
Reason for Visit Reason for Visit: Diagnoses Hypothyroidism, unspecified (01/05/24) Heart failure, unspecified (01/05/24) Disorder of kidney and ureter, unspecified (01/05/24) Other ascites (01/05/24) Objective Data Objective Data Vital Signs: Vital Signs Temp Pulse Resp BP Pulse Ox O2 Del Method O2 Flow Rate 97.2 F L 80 16 93/60 98 Room Air 2 01/10/24 03:00 01/10/24 06:52 01/10/24 06:52 01/10/24 03:00 01/10/24 06:52 01/10/24 06:52 01/05/24 22:00 Oxygen Flow Rate (L/min) 2 Oxygen Delivery Method Room Air Weight: 116.1 kg Body Mass Index (BMI) 31.8 Intake & Output: Intake and Output for Last 24 Hours 01/08/24 01/09/24 01/10/24 23:59 23:59 23:59 Intake Total 1210 / 1330 1182.08 / 1422.08 240 / 240 Output Total 550 / 800 1050 / 1050 900 / 900 Balance 660 / 530 132.08 / 372.08 -660 / -660 Lab / Micro Data 01/10/24 05:11 01/10/24 05:11 Labs: Laboratory Results - last 24 hr 01/09/24 06:35: RBC Morphology N CHROM, Anisocytosis 2+ 01/10/24 05:11: WBC 4.8, RBC 4.36 L, Hgb 14.0, Hct 42.8, MCV 98.2 H, MCH 32.1 H, MCHC 32.7, RDW Std Deviation 67.1 H, RDW Coeff of [place]elia 18.9 H, Plt Count 120 L, MPV 10.2, Immature Gran % (Auto) 1.400 H, Neut % (Auto) 56.4, Lymph % (Auto) 20.7, [place] % (Auto) 19.7 H, Eos % (Auto) 0.4, Baso % (Auto) 1.4 H, Absolute Neuts (auto) 2.7, Absolute Lymphs (auto) 1.00, Nucleated RBC % 0, Anisocytosis 2+, Sodium 134 L, Potassium 3.6, Chloride 99, Carbon Dioxide 27.0, Anion Gap 8, BUN 56 H, Creatinine 1.45 H, Estim Creat Clear Calc 69.43, Est GFR (MDRD) Af Amer 62, Est GFR (MDRD) Non-Af 51 L, BUN/Creatinine Ratio 38.6 H, Glucose 152 H, Calcium 8.7 Micro: Microbiology 01/06/24 13:40 Fluid - Ascites Gram Stain - Final 01/06/24 13:40 Fluid - Ascites Body Fluid Culture - Final Staphylococcus epidermidis [place] odontolyticus 01/06/24 13:40 Fluid - Ascites Anaerobic Culture - Preliminary No growth in 48 hours. Physical Exam Narrative GENERAL: cooperative HEENT: Atraumatic; normocephalic EYES; Anicteric, Normal Conjunctiva NECK; supple, normal thyroid, RESPIRATORY: Diminished to auscultation CARDIOVASCULAR: Regular S1 S2, GI: soft, normoactive bowel sounds, abdominal distention : No Renal angle tenderness; EXTREMITIES: Significant edema involving both lower extremities MUSCULOSKELETAL: no muscle wasting NEURO: Awake; no lateralizing signs. SKIN: No Rash PSYCH; Flat affect Assessment & Plan Assessment/Plan (1) Acute exacerbation of chronic heart failure: PLAN: Plan Patient is a 68-year-old old gentleman with history of cardiac amyloidosis who presented with shortness of breath and assessment of acute exacerbation of CHF made admitted to a monitored bed for further management 1. Acute on chronic congestive heart failure with preserved ejection fraction ? Secondary to cardiac amyloidosis. Patient admitted to regular nursing floor management strict input and output, daily weights low-sodium diet as well as diuretic therapy. Patient diuretic therapy was complicated by hypotension necessitating initiation of midodrine and subsequently Lasix drip ? 01/09/2024; Patient seen continues to improve clinically. His weight is down from 134 on admission to 121.5. Plan is to discontinue Lasix drip and start patient on scheduled oral Lasix in anticipation of possible discharge in a.m. 2. Cardiac amyloidosis ? Patient is followed byCardiology as outpatient 3. Ascites ? 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 Patient underwent ultrasound-guided paracentesis with 3.7 L of ascitic fluid taken off 4.Hypothyroidism - Patient is on levothyroxine home dose continued 5. Chronic kidney disease stage III ? Creatinine on admission was 1.94 kidney function did improve with diuretic therapy 6. Class I obesity with BMI of 33.6 ? Complicating care 7. DVT prophylaxis ? Subcu heparin Time spent in the patient's overall evaluation,decision-making process, review of diagnostic data, adjustment of management, discussion with other providers, nursing nursing and ancillary staff involved in patient's care documentation, 36 Minutes
[2024-01-10 09:00] VITALS: BP 82/60; PULSE 82; RESP 16; TEMP 36.1; O2SAT 98
[2024-01-10] MEDS: Fluticasone 0.05% 1 SPRAY NASAL.SRY NASAL (10:35)
[2024-01-10] MEDS: Aspirin E.C. 81 MG Tablet PO (10:35)
[2024-01-10] MEDS: Midodrine HCl 5 MG Tablet 15 MG PO (10:35)
[2024-01-10] MEDS: Spironolactone 25 MG Tablet PO (10:36)
[2024-01-10] MEDS: Loratadine 10 MG Tablet PO (10:37)
[2024-01-10] MEDS: Heparin Injection (Vial) 5,000 UNIT/ML VIAL 5000 UNIT SC (10:37)
[2024-01-10] MEDS: Furosemide 20 MG Tablet 60 MG PO (10:37)
[2024-01-10 10:38] VITALS: BP 95/78; PULSE 82; RESP 16; TEMP 36.1; O2SAT 96
--- NOTE | 2024-01-10 11:10 | PCM.DC.SUM ---
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 Acute on chronic congestive heart failure with preserved ejection fraction ? Secondary to cardiac amyloidosis. Patient admitted to regular nursing floor management strict input and output, daily weights low-sodium diet as well as diuretic therapy. Patient diuretic therapy was complicated by hypotension necessitating initiation of midodrine and subsequently Lasix drip ? 01/09/2024; Patient seen continues to improve clinically. His weight is down from 134 on admission to 121.5. Plan is to discontinue Lasix drip and start patient on scheduled oral Lasix in anticipation of possible discharge in a.m. ? 2D echo from 07/28/2023 demonstrated Interpretation Summary Normal LV size. Severe concentric left ventricular hypertrophy. Stage 3 diastolic dysfunction. The estimated ejection fraction is 50 %. Moderate (2+) eccentric mitral valve insufficiency. 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 The global longitudinal strain is severely abnormal. The global longitudinal strain = -9% (abnormal) 2. Cardiac amyloidosis ? Patient is followed byCardiology as outpatient 3. Ascites ? 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 Patient underwent ultrasound-guided paracentesis with 3.7 L of ascitic fluid taken off 4.Hypothyroidism - Patient is on levothyroxine home dose continued 5. Chronic kidney disease stage III ? Creatinine on admission was 1.94 kidney function did improve with diuretic therapy 6. Class I obesity with BMI of 33.6 ? Complicating care 7. DVT prophylaxis ? Subcu heparin Time spent in the patient's overall evaluation,decision-making process, review of diagnostic data, adjustment of management, discussion with other providers, nursing nursing and ancillary staff involved in patient's care documentation, 36 Minutes Medications at Discharge Home Medications albuterol sulfate 90 mcg/actuation aerosol inhaler 2 inh inhalation Q4H PRN shortness of breath or wheezing 07/28/23 cetirizine 10 mg tablet (Zyrtec) 10 mg PO DAILY allergies 07/28/23 fluticasone propionate 50 mcg/actuation nasal spray,suspension (24 Hour Allergy Relief) 1 spray intranasal DAILY allergies 07/28/23 aspirin 81 mg tablet,delayed release (Tigre Low Dose Aspirin) 81 mg PO DAILY #30 tabs 07/30/23 levothyroxine 25 mcg tablet 25 mcg PO QDAY 09/01/23 spironolactone 25 mg tablet 25 mg PO DAILY #30 tabs 10/02/23 dapagliflozin propanediol 10 mg tablet 10 mg PO QDAY 12/08/23 fluticasone furoate 100 mcg-vilanterol 25 mcg/dose inhalation powder 1 ea inhalation DAILY 01/05/24 mupirocin 2 % topical ointment 0.25 ea topical TID 01/05/24 midodrine 5 mg tablet 10 mg (2 x 5 mg) PO TIDCM 30 days #180 tabs 01/10/24 torsemide 20 mg tablet 40 mg (2 x 20 mg) PO BID 30 days #120 tabs 01/10/24 Physical Exam Narrative GENERAL: cooperative HEENT: Atraumatic; normocephalic EYES; Anicteric, Normal Conjunctiva NECK; supple, normal thyroid, RESPIRATORY: Diminished to auscultation CARDIOVASCULAR: Regular S1 S2, GI: soft, normoactive bowel sounds, abdominal distention : No Renal angle tenderness; EXTREMITIES: Significant edema involving both lower extremities MUSCULOSKELETAL: no muscle wasting NEURO: Awake; no lateralizing signs. SKIN: No Rash PSYCH; Flat affect Weight / BMI Weight Weight: 116.1 kg Body Mass Index (BMI) 31.8 ABG / Lab / Microbiology Data 01/10/24 05:11 01/10/24 05:11 Laboratory: Laboratory Results - last 24 hr 01/10/24 05:11: WBC 4.8, RBC 4.36 L, Hgb 14.0, Hct 42.8, MCV 98.2 H, MCH 32.1 H, MCHC 32.7, RDW Std Deviation 67.1 H, RDW Coeff of [place] 18.9 H, Plt Count 120 L, MPV 10.2, Immature Gran % (Auto) 1.400 H, Neut % (Auto) 56.4, Lymph % (Auto) 20.7, [place] % (Auto) 19.7 H, Eos % (Auto) 0.4, Baso % (Auto) 1.4 H, Absolute Neuts (auto) 2.7, Absolute Lymphs (auto) 1.00, Nucleated RBC % 0, Anisocytosis 2+, Sodium 134 L, Potassium 3.6, Chloride 99, Carbon Dioxide 27.0, Anion Gap 8, BUN 56 H, Creatinine 1.45 H, Estim Creat Clear Calc 69.43, Est GFR (MDRD) Af Amer 62, Est GFR (MDRD) Non-Af 51 L, BUN/Creatinine Ratio 38.6 H, Glucose 152 H, Calcium 8.7 Microbiology: Microbiology 01/08/24 07:25 Urine, Clean Catch Urine Culture - Final Mixed Gram Pos & Gram Neg Org 01/06/24 13:40 Fluid - Ascites Gram Stain - Final 01/06/24 13:40 Fluid - Ascites Body Fluid Culture - Final Staphylococcus epidermidis [place] odontolyticus 01/06/24 13:40 Fluid - Ascites Anaerobic Culture - Preliminary No growth in 48 hours. D/C Instructions Discharge Diet: 6 Cup Fluid Restriction and 2000 mg Sodium Diet Discharge Activity: Return to Normal Activity Call your doctor if you observe: Fever of 101 or Higher, Shortness of breath, Fainting spells and Chest pain Meaningful Use Info Meaningful Use Meaningful Use Diagnoses (Choose all that apply): CHF CHF OPAL/ARB ordered at discharge?: No Reason OPAL/ARB not ordered?: Not indicated Documented LVEF (%): 50 Ischemic Stroke Statin Dosing Therapy Reference: STATIN DOSE THERAPY REFERENCE: * Patients > 75 years receive moderate or high dose statin therapy. * Patients 75 years or YOUNGER should receive HIGH intensity statin dose unless contraindicated. You will be required to document reason for non-treatment if statin daily dose does not meet guidelines. HIGH DOSE STATIN THERAPY DAILY Atorvastatin > than or = to 40 mg Rosuvastatin > than or = to 20 mg Amlodipine + Atorvastatin > than or = to 2.5/40 mg Ezetimibe + Simvastatin 10/80 mg Simvastatin 80mg Discharge Plan Admission Admit Date/Time: 01/05/24 14:24 Attending Provider: Reddy Tolbert Primary Care Provider: Rizwana Lam Consulting Providers: Beth Burt; Javier Lomeli Instructions Patient Instructions: RAD RN Paracentesis Dc Discharge Orders/Prescriptions Prescriptions: New midodrine 5 mg Tablet 10 mg PO TIDCM 30 Days Qty: 180 0RF Continued levothyroxine 25 mcg tablet 25 mcg PO QDAY dapagliflozin propanediol 10 mg tablet 10 mg PO QDAY cetirizine [Zyrtec] 10 mg tablet 10 mg PO DAILY fluticasone propionate [24 Hour Allergy Relief] 50 mcg/actuation spray,suspension 1 spray intranasal DAILY Rx Instructions: administer into each nostril albuterol sulfate 90 mcg/actuation HFA aerosol inhaler 2 inh inhalation Q4H PRN (Reason: shortness of breath or wheezing) aspirin [Tigre Low Dose Aspirin] 81 mg tablet,delayed release (DR/EC) 81 mg PO DAILY Qty: 30 3RF mupirocin 2 % ointment 0.25 ea topical TID fluticasone furoate-vilanterol 100-25 mcg/dose blister with device 1 ea inhalation DAILY torsemide 20 mg tablet 40 mg PO BID 30 Days Qty: 120 0RF spironolactone 25 mg tablet 25 mg PO DAILY Qty: 30 11RF Referrals / Follow Up: Rizwana Lam MD [Primary Care Provider] - In 1 Week Disposition Disposition (needs filled in before D/C Order can be placed): Home, Self Care Charges/Coding Visit Charges Inpatient E&M: 48061 Disch Hosp >30min
[2024-01-10 12:57] VITALS: PULSE 89; RESP 16
== END 2024-01-10 15:55 | disposition home or self-care (01) | DRG 292 ==
LOC: ED 14:33 → PCU 14:57
PROVIDERS: Internal Medicine; Admitting Provider Internal Medicine; Emergency Provider Emergency Medicine; PCP Family Medicine; Visit Provider Internal Medicine
DX: I50.33 Acute on chronic diastolic (congestive) heart failure (principal); E85.4 Organ-limited amyloidosis; I43 Cardiomyopathy in diseases classified elsewhere; R18.8 Other ascites; J44.9 Chronic obstructive pulmonary disease, unspecified; K74.60 Unspecified cirrhosis of liver; N18.32 Chronic kidney disease, stage 3b; E03.9 Hypothyroidism, unspecified; I34.0 Nonrheumatic mitral (valve) insufficiency; E66.9 Obesity, unspecified; Z79.890 Hormone replacement therapy; Z87.891 Personal history of nicotine dependence; Z79.82 Long term (current) use of aspirin; Z68.33 Body mass index [BMI] 33.0-33.9, adult
CPT/HCPCS: 36415; 49083; 71045; 76705; 80048; 80053; 80061; 81001; 82945; 83615; 83735; 83880; 84100; 84157; 84439; 84443; 84481; 84484; 85025; 87070; 87075; 87077; 87086; 87088; 87186; 87205; 88108; 88305; 88313; 89050; 93005; 94640; 97110; 97116; 97162; 97166; 97530; 97535; 97802; 99285; P9047; A4216; J1940